=== PATIENT | female | born 1965 | race Caucasian/White ===

== ENCOUNTER 2018-01-26 11:39 | Emergency (ER) | payer OTHER, MEDICAID, SELFPAY ==
[2018-01-26 11:54] VITALS: BP 166/92; PULSE 62; RESP 13; TEMP 36.6; O2SAT 97
[2018-01-26 12:05] VITALS: BP 146/92; PULSE 65; RESP 18; O2SAT 99
--- NOTE | 2018-01-26 12:12 | DI.RAD.S_ITS ---
PROCEDURE: XR CHEST 1V INDICATIONS: Elevated blood pressure and headache. Chest pressure. TECHNIQUE: One view of the chest was acquired. COMPARISON: [facility], , CHEST 2 VIEW, 11/04/2012, 23:28. FINDINGS: Surgical changes and devices: None. Lungs and pleura: No pleural effusions or pneumothorax. A faint nodular/linear opacity projects over the right upper lobe at the overlap of the right third and fifth ribs, not present on comparison exam. Mediastinum: Mediastinal contours appear normal. Heart size is normal. Bones and chest wall: No suspicious bony lesions. Overlying soft tissues appear unremarkable. IMPRESSION: Faint nodular/linear opacity projects over the right upper lobe at the overlap of the right third and fifth ribs. This is not seen on comparison exam. This is likely artifactual but consider followup repeat chest radiograph to exclude a new pulmonary abnormality. Otherwise, no acute cardiopulmonary disease detected. Dictated by: Ken Najera M.D. on 01/26/2018 at 12:43 Approved by: Ken Najera M.D. on 01/26/2018 at 12:46
--- NOTE | 2018-01-26 12:20 | ED_ITS ---
HPI - Headache <PHUONG Chandler - Last Filed: 01/26/18 21:54> General Chief Complaint: Headache Stated Complaint: High blood pressure, headache Time Seen by Provider: 01/26/18 11:44 History of Present Illness HPI Narrative: 52-year-old female with history of migraine headaches and also essential hypertension here for complaint of having elevated blood pressure today and also having migraine headache. She states she has a headache most days she states that this is a typical migraine headache for her. She has photophobia. Slight nausea. She has not been on hypertension medicine as she was taken off as she states that she had hypo kalemia. She was a patient of Dr. Woods in the past however was discharged. She has not had any hypertension medications since this timeframe. She also states that she has had increased frustration with the people around her at work and at home. She denies any fevers or chills. She denies any other stressors. No relievers of her headache. Her blood pressure reduced after relaxing in the emergency room for a small period time. MD Complaint: headache Related Data Home Medications Medication Instructions Recorded Confirmed [id number] 250 1 tab PO Q4-6H PRN 01/13/18 01/26/18 mg-250 mg-65 mg tablet multivitamin tablet 1 tab PO DAILY 01/13/18 01/26/18 omega-3 fatty acids 1,000 mg 1,000 mg PO DAILY 01/13/18 01/26/18 capsule hydroxyzine HCl 25 - 50 mg PO HS 01/26/18 01/26/18 venlafaxine 3 cap PO DAILY 01/26/18 01/26/18 Previous Rx's Medication Instructions Recorded cholecalciferol (vitamin D3) 2,000 2,000 unit PO DAILY 90 Days #90 cap 01/13/18 unit capsule propranolol 20 mg tablet 20 mg PO BIDP PRN 30 Days #60 tab 01/13/18 Allergies Allergy/AdvReac Type Severity Reaction Status Date / Time lamotrigine [LAMOTRIGINE] Allergy Severe (LAMICTAL) Unverified 01/13/18 14:21 REALLY BAD NIGHTMARES tramadol [TRAMADOL] Allergy Severe SOB AND Unverified 01/13/18 14:21 RASH clonidine [CLONIDINE] Allergy Intermediate PATIENT Unverified 01/13/18 14:21 CAN'T REMEMBER...IT JUST WASN'T GOOD FOR ME Sulfa (Sulfonamide Allergy Intermediate RASH Unverified 01/13/18 14:21 Antibiotics) [SULFA (SULFONAMIDE ANTIBIOTICS)] bupropion [BUPROPION] AdvReac Unknown SOB and Unverified 01/13/18 14:21 panic reported by patient Review of Systems <PHUONG Chandler - Last Filed: 01/26/18 21:54> Constitutional Denies fatigue and Reports headache(s) Eyes Denies change in vision, Denies eye discharge, Denies irritation and Denies loss of vision ENT Ears, Nose, Mouth, and Throat: Reports headache(s) Cardiovascular Denies dyspnea and Denies dyspnea on exertion Comments: Elevated blood pressure Respiratory Denies cough, Denies dyspnea, Denies dyspnea on exertion and Denies wheezing Gastrointestinal Gastrointestinal: Denies abdominal pain, Denies change in bowel habits, Denies diarrhea, Denies nausea and Denies vomiting Genitourinary Denies hematuria, Denies flank pain, Denies urinary incontinence and Denies urinary urgency Musculoskeletal Denies back pain, Denies muscle weakness, Denies numbness and Denies tingling Integumentary/Breasts Denies pruritus, Denies erythema, Denies rash and Denies wounds Neurologic Denies confusion, Reports headache(s), Denies loss of vision, Denies numbness and Denies tingling Psychiatric Denies anxiety, Denies confusion, Denies depression, Denies homicidal ideation and Denies suicidal ideation Endocrine Denies fatigue and Denies flushing Hematologic/Lymphatic Denies easy bruising Allergic/Immunologic Denies wheezing Exam <PHUONG Chandler - Last Filed: 01/26/18 21:54> Initial Vital Signs Initial Vital Signs: Vital Signs Temperature 97.8 F 01/26/18 11:54 Pulse Rate 62 01/26/18 11:54 Respiratory Rate 13 01/26/18 11:54 Blood Pressure 166/92 H 01/26/18 11:54 Pulse Oximetry 97 01/26/18 11:54 Const General: cooperative and well developed Nutritional Appearance: well nourished Orientation: alert, awake, oriented x3 and not confused HENMT Mouth: oral mucosae normal and moist mucous membranes Eyes Conjunctivae: conjunctivae normal Sclera: sclerae normal Pupils: PERRL EOM: EOM intact bilaterally Resp Effort & Inspection: normal respiratory effort, able to speak in complete sentences, no respiratory distress and no use of accessory muscles Auscultation: clear to auscultation bilaterally, no rales, no rhonchi and no wheezes Cardio Rate: regular rate Rhythm: regular rhythm Heart Sounds: no click, no gallops, no murmurs and no rubs Pulses: normal peripheral pulses Skin General: no rashes or lesions noted, No jaundice and No petechiae Neuro General: alert, oriented x3, gait normal and no focal motor deficits Speech: speech normal Extrem General: full ROM, no clubbing, cyanosis or edema, no pedal edema and no calf tenderness <Silas Quiroz DO - Last Filed: 01/27/18 08:31> Initial Vital Signs Initial Vital Signs: Vital Signs Temperature 97.8 F 01/26/18 11:54 Pulse Rate 62 01/26/18 11:54 Respiratory Rate 13 01/26/18 11:54 Blood Pressure 166/92 H 01/26/18 11:54 Pulse Oximetry 97 01/26/18 11:54 Course <PHUONG Chandler - Last Filed: 01/26/18 21:54> Orders Ordered: Discontinued Medications Diphenhydramine HCl (Benadryl) 25 mg IV NOW ONE Stop: 01/26/18 12:13 Last Admin: 01/26/18 13:31 Dose: Sodium Chloride (Normal Saline 0.9%) 1,000 mls @ 1,000 mls/hr IV BOLUS ONE Stop: 01/26/18 13:11 Last Infusion: 01/26/18 14:06 Dose: 1,000 mls/hr Admin: 01/26/18 13:30 Dose: 1,000 mls/hr Ketorolac Tromethamine (Toradol) 30 mg IV NOW ONE Stop: 01/26/18 12:13 Last Admin: 01/26/18 13:30 Dose: 30 mg Prochlorperazine (Compazine) 10 mg IV NOW ONE Stop: 01/26/18 12:17 Last Admin: 01/26/18 13:31 Dose: Vital Signs - 8 hr 01/26/18 14:05 Pulse Rate 60 Respiratory Rate 16 Blood Pressure 170/96 H Pulse Oximetry 100 <Silas Quiroz DO - Last Filed: 01/27/18 08:31> Orders Ordered: Discontinued Medications Diphenhydramine HCl (Benadryl) 25 mg IV NOW ONE Stop: 01/26/18 12:13 Last Admin: 01/26/18 13:31 Dose: Sodium Chloride (Normal Saline 0.9%) 1,000 mls @ 1,000 mls/hr IV BOLUS ONE Stop: 01/26/18 13:11 Last Infusion: 01/26/18 14:06 Dose: 1,000 mls/hr Admin: 01/26/18 13:30 Dose: 1,000 mls/hr Ketorolac Tromethamine (Toradol) 30 mg IV NOW ONE Stop: 01/26/18 12:13 Last Admin: 01/26/18 13:30 Dose: 30 mg Prochlorperazine (Compazine) 10 mg IV NOW ONE Stop: 01/26/18 12:17 Last Admin: 01/26/18 13:31 Dose: Vital Signs - 8 hr 01/26/18 14:05 Pulse Rate 60 Respiratory Rate 16 Blood Pressure 170/96 H Pulse Oximetry 100 MDM - Headache <PHUONG Chandler - Last Filed: 01/26/18 21:54> Lab Data Result diagrams: 01/26/18 12:30 01/26/18 12:30 Lab Results 01/26/18 01/26/18 Range/Units 12:30 12:30 WBC 8.4 (4.5-11.0) X10^3/uL RBC 4.69 (4.0-5.2) X10^6/uL Hgb 13.9 (12.0-16.0) g/dL Hct 40.5 (36-46) % MCV 86.2 (80-100) fL MCH 29.6 (26-34) PG MCHC 34.3 (30-36) % RDW 13.4 (11.6-14.8) % Plt Count 352 (150-400) X10^3/uL Neut % (Auto) 55.4 (50-75) % Lymph % (Auto) 34.1 (25-40) % [place] % (Auto) 6.7 (3-14) % Eos % (Auto) 3.3 (2-4) % Baso % (Auto) 0.5 (0-2) % Neut # (Auto) 4600 (2945-4259) /uL Sodium 141 (137-145) mmol/L Potassium 3.7 (3.4-5.1) mmol/L Chloride 104 (98-107) mmol/L Carbon Dioxide 30 (22-32) mmol/L BUN 17 (7-17) mg/dL Creatinine 0.70 (0.52-1.04) mg/dL Estimated GFR > 60.0 (>60) mL/min BUN/Creatinine Ratio 24.3 H (6-22) Glucose 99 (70-100) mg/dL Calcium 9.6 (8.4-10.2) mg/dL Total Bilirubin 0.7 (0.2-1.3) mg/dL AST 25 (14-36) IU/L ALT 27 (9-52) IU/L Alkaline Phosphatase 85 (38-126) U/L Total Creatine Kinase 163 H (30-135) U/L CK-MB (CK-2) 2.85 H (<2.37) ng/mL CK-MB (CK-2) Rel Index 1.7 (1.5-5.0) % Troponin I < 0.012 (0.01-0.034) ng/mL Total Protein 7.3 (6.3-8.2) g/dL Albumin 4.3 (3.5-5.0) g/dL Globulin 3.0 (1.7-4.1) g/dL Albumin/Globulin Ratio 1.4 (1.0-2.8) Imaging Data Chest x-ray: Radiologist's impression: PROCEDURE: XR CHEST 1V INDICATIONS: Elevated blood pressure and headache. Chest pressure. TECHNIQUE: One view of the chest was acquired. COMPARISON: [facility], , CHEST 2 VIEW, 11/04/2012, 23:28. FINDINGS: Surgical changes and devices: None. Lungs and pleura: No pleural effusions or pneumothorax. A faint nodular/linear opacity projects over the right upper lobe at the overlap of the right third and fifth ribs, not present on comparison exam. Mediastinum: Mediastinal contours appear normal. Heart size is normal. Bones and chest wall: No suspicious bony lesions. Overlying soft tissues appear unremarkable. IMPRESSION: Faint nodular/linear opacity projects over the right upper lobe at the overlap of the right third and fifth ribs. This is not seen on comparison exam. This is likely artifactual but consider followup repeat chest radiograph to exclude a new pulmonary abnormality. Otherwise, no acute cardiopulmonary disease detected. Dictated by: Ken Najera M.D. on 01/26/2018 at 12:43 Approved by: Ken Najera M.D. on 01/26/2018 at 12:46 CT scan - head: Radiologist's impression: PROCEDURE: CT HEAD/BRAIN WO CON INDICATIONS: HEADACHE TECHNIQUE: Noncontrast 4.5 mm thick angled axial sections acquired from the foramen magnum to the vertex, with coronal and sagittal reformats. For radiation dose reduction, the following was used: automated exposure control, adjustment of mA and/or kV according to patient size. COMPARISON: None. FINDINGS: Image quality: Excellent. CSF spaces: Basal cisterns are patent. No extra-axial fluid collections. Ventricles are normal in size and shape. Brain: No intracranial hemorrhage, mass, or mass effect. Dobbins-white matter interface is preserved. Skull and face: Calvarium and visualized facial bones are intact, without suspicious lesions. Sinuses: Visualized sinuses and mastoids are clear. IMPRESSION: 1. No acute intracranial abnormality. Dictated by: Velasquez Gallagher M.D. on 01/26/2018 at 13:15 Approved by: Velasquez Gallagher M.D. on 01/26/2018 at 13:16 ECG Data Interpretation: EKG shows sinus bradycardia with no ST elevation or depression. No ectopy. Ventricular rate of 56. Pr interval 165. QRS duration of 88. QTC of 453. MDM Narrative Medical decision making narrative: CT the head was obtained was negative for any acute findings. CBC was obtained was unremarkable. Chem panel was negative for any acute findings. Cardiac enzymes show elevated CK-MB however relative index was normal. Troponin was negative. EKG shows sinus rhythm no ST elevation or depression. No signs of organ damage on laboratory results. Her headache was relieved with fluids and Toradol. She states she felt better after relaxing in the emergency room. Her blood pressure normalized in the emergency room after relaxing. She is to follow up with primary care provider here in the next few days with discussion of medications for her essential hypertension. [id number] Tylenol Motrin as needed for discomfort or headache. For any worsening symptoms return to the emergency room. <Silas Quiroz DO - Last Filed: 01/27/18 08:31> Lab Data Lab Results 01/26/18 01/26/18 Range/Units 12:30 12:30 WBC 8.4 (4.5-11.0) X10^3/uL RBC 4.69 (4.0-5.2) X10^6/uL Hgb 13.9 (12.0-16.0) g/dL Hct 40.5 (36-46) % MCV 86.2 (80-100) fL MCH 29.6 (26-34) PG MCHC 34.3 (30-36) % RDW 13.4 (11.6-14.8) % Plt Count 352 (150-400) X10^3/uL Neut % (Auto) 55.4 (50-75) % Lymph % (Auto) 34.1 (25-40) % [place] % (Auto) 6.7 (3-14) % Eos % (Auto) 3.3 (2-4) % Baso % (Auto) 0.5 (0-2) % Neut # (Auto) 4600 (3359-1832) /uL Sodium 141 (137-145) mmol/L Potassium 3.7 (3.4-5.1) mmol/L Chloride 104 (98-107) mmol/L Carbon Dioxide 30 (22-32) mmol/L BUN 17 (7-17) mg/dL Creatinine 0.70 (0.52-1.04) mg/dL Estimated GFR > 60.0 (>60) mL/min BUN/Creatinine Ratio 24.3 H (6-22) Glucose 99 (70-100) mg/dL Calcium 9.6 (8.4-10.2) mg/dL Total Bilirubin 0.7 (0.2-1.3) mg/dL AST 25 (14-36) IU/L ALT 27 (9-52) IU/L Alkaline Phosphatase 85 (38-126) U/L Total Creatine Kinase 163 H (30-135) U/L CK-MB (CK-2) 2.85 H (<2.37) ng/mL CK-MB (CK-2) Rel Index 1.7 (1.5-5.0) % Troponin I < 0.012 (0.01-0.034) ng/mL Total Protein 7.3 (6.3-8.2) g/dL Albumin 4.3 (3.5-5.0) g/dL Globulin 3.0 (1.7-4.1) g/dL Albumin/Globulin Ratio 1.4 (1.0-2.8) Discharge Plan Departure Patient Disposition: Home, Self-Care Clinical Impression: Migraine without status migrainosus, not intractable Discharge Date/Time: 01/26/18 14:09 Interventions: ED Discharge Assessment Last Done: 01/26/18 14:05 Instructions: DI for Migraine Activity Restrictions/Additional Instructions: Sinus symptoms presents as a migraine headache. Blood pressure was initially elevated however after relaxing year blood pressure lower. Follow up with her primary care provider in the next few days for re-evaluation and discussion of medication treatment for hypertension. Recommend repeat a chest x-ray later as there was some possible artifact that was seen on the chest x-ray ensure that there are no complications. Head CT was obtained and was negative for any acute findings. Laboratory results were unremarkable. For any worsening symptoms return to the emergency room. Prescriptions: No Action omega-3 fatty acids [Fish Oil Concentrate] 1,000 mg capsule 1,000 mg PO DAILY RF: 0 [id number]-aqqpypahsepov-dgllwpek [Excedrin Migraine] 250-250-65 mg tablet 1 tab PO Q4-6H PRN (Reason: Migraine Headache) RF: 0 multivitamin tablet 1 tab PO DAILY RF: 0 propranolol 20 mg tablet 20 mg PO BIDP PRN (Reason: anxiety) 30 Days Qty: 60 RF: 2 cholecalciferol (vitamin D3) 2,000 unit capsule 2,000 unit PO DAILY 90 Days Qty: 90 RF: 3 venlafaxine 150 mg capsule,extended release 24hr 3 cap PO DAILY RF: 0 hydroxyzine HCl 50 MG tablet 25 - 50 mg PO HS RF: 0 Referrals: [facility] [Provider Group] Stand Alone Forms: Work/School Restrictions <Silas Quiroz DO - Last Filed: 01/27/18 08:31> Cosign ED Attending Ishan Attestation: I was immediately available in the department for consultation. Documentation has been reviewed. I agree with assessment and plan.
--- NOTE | 2018-01-26 12:30 | DI.CT.S_ITS ---
PROCEDURE: CT HEAD/BRAIN WO CON INDICATIONS: HEADACHE TECHNIQUE: Noncontrast 4.5 mm thick angled axial sections acquired from the foramen magnum to the vertex, with coronal and sagittal reformats. For radiation dose reduction, the following was used: automated exposure control, adjustment of mA and/or kV according to patient size. COMPARISON: None. FINDINGS: Image quality: Excellent. CSF spaces: Basal cisterns are patent. No extra-axial fluid collections. Ventricles are normal in size and shape. Brain: No intracranial hemorrhage, mass, or mass effect. Dobbins-white matter interface is preserved. Skull and face: Calvarium and visualized facial bones are intact, without suspicious lesions. Sinuses: Visualized sinuses and mastoids are clear. IMPRESSION: 1. No acute intracranial abnormality. Dictated by: Velasquez Gallagher M.D. on 01/26/2018 at 13:15 Approved by: Velasquez Gallagher M.D. on 01/26/2018 at 13:16
[2018-01-26 12:43] VITALS: BP 168/88; PULSE 57; RESP 18; O2SAT 100
[2018-01-26 12:50] LABS: Add Manual Diff / Slide Review NO; Basophils Percent Auto 0.5 % (0-2); Eosinophils Percent Auto 3.3 % (2-4); Hematocrit 40.5 % (36-46); Hemoglobin 13.9 g/dL (12.0-16.0); Lymphocytes Percent Auto 34.1 % (25-40); Mean Corpuscular HGB Conc 34.3 % (30-36); Mean Corpuscular Hemoglobin 29.6 PG (26-34); Mean Corpuscular Volume 86.2 fL (80-100); Monocytes Percent Auto 6.7 % (3-14); Neutrophils Absolute Auto 4600 /uL (3000-5900); Neutrophils Percent Auto 55.4 % (50-75); Platelet Count 352 X10^3/uL (150-400); Red Blood Cell Count 4.69 X10^6/uL (4.0-5.2); Red Cell Distribution Width 13.4 % (11.6-14.8); White Blood Cell Count 8.4 X10^3/uL (4.5-11.0)
[2018-01-26 12:52] LABS: Alanine Aminotransferase 27 IU/L (9-52); Albumin 4.3 g/dL (3.5-5.0); Albumin Globulin Ratio 1.4 (1.0-2.8); Alkaline Phosphatase 85 U/L (38-126); Aspartate Aminotransferase 25 IU/L (14-36); BUN Creatinine Ratio 24.3 (6-22); Bilirubin Total 0.7 mg/dL (0.2-1.3); Blood Urea Nitrogen 17 mg/dL (7-17); Calcium 9.6 mg/dL (8.4-10.2); Carbon Dioxide 30 mmol/L (22-32); Chloride 104 mmol/L (98-107); Creatine Kinase 163 U/L (30-135); Estimated Glomerular Filt Rate > 60.0 mL/min (>60); Glucose 99 mg/dL (70-100); HEMOLYSIS < 15 (0-50); Potassium 3.7 mmol/L (3.4-5.1); Sodium 141 mmol/L (137-145); Total Protein 7.3 g/dL (6.3-8.2)
[2018-01-26 13:04] LABS: Troponin I < 0.012 ng/mL (0.01-0.034)
[2018-01-26 13:08] LABS: CKMB % Relative Index 1.7 % (1.5-5.0); Creatine Kinase MB 2.85 ng/mL (<2.37)
[2018-01-26] MEDS: SODIUM CHLORIDE 0.9% 1,000 ML 1000 ML IV (13:30)
[2018-01-26] MEDS: KETOROLAC 60 MG/2 ML VIAL 30 MG IV (13:30)
[2018-01-26 13:35] VITALS: BP 160/93; PULSE 62; RESP 17; O2SAT 98
[2018-01-26 14:05] VITALS: BP 170/96; PULSE 60; RESP 16; O2SAT 100
== END 2018-01-26 14:09 | disposition home or self-care (01) ==
PROVIDERS: Emergency Provider Nurse Practitioner Family
DX: G43.909 Migraine, unspecified, not intractable, without status migrainosus (principal)
CPT/HCPCS: 70450; 71045; 80053; 82550; 82553; 84484; 85025; 93005; 96361; 96374; 99283; 99285; J1885

== ENCOUNTER 2018-03-11 12:34 | Emergency (ER) | payer OTHER, MEDICAID, SELFPAY ==
--- NOTE | 2018-03-11 | DI.RAD.S_ITS ---
PROCEDURE: XR WRIST LT MIN 3V INDICATIONS: PAIN TECHNIQUE: 4 views of the wrist were acquired. COMPARISON: [facility], CR, XR FOREARM LT 2V, 03/11/2018, 12:40. FINDINGS: Bones: There is a fracture involving the distal radial metaphysis with impaction and dorsal angulation. Equivocal intra-articular involvement. No suspicious bony lesions. Scaphoid view: Scaphoid appears intact. Soft tissues: No suspicious soft tissue calcifications. IMPRESSION: Distal radial metaphyseal fracture with impaction and dorsal angulation. Dictated by: Magdalene Barrientos M.D. on 03/11/2018 at 13:44 Approved by: Magdalene Barrientos M.D. on 03/11/2018 at 13:46
--- NOTE | 2018-03-11 12:40 | ED.UPPEXIN ---
HPI - Extremity Injury (Upper) <PHUONG Chandler - Last Filed: 03/11/18 20:46> General Chief Complaint: Extremity Injury, Upper Stated Complaint: FELL,HIT HEAD, LEFT WRIST PAIN Time Seen by Provider: 03/11/18 12:40 Source: patient Mode of arrival: ambulatory Limitations: no limitations History of Present Illness HPI narrative: 52-year-old female with history of hypertension and everyday smoker here for complaint of pain into her left wrist and forearm area after ground level fall. She also reports that she has had pain into her right ribcage. [place] on [place] piece of wood. She tried to brace her fall with her left hand. She also states she rolled landing on her right buttocks and right ribcage. She reports pain into her right rib cage area. She does state that she did hit her head she denies any loss of consciousness. She did have 1 episode of vomiting shortly after the fall however denies any other vomiting. She denies any headache or pain to her head at this time. Pain is limited to the right ribcage area and to the left forearm/wrist. She denies any other injuries or concerns. She is ambulatory to the emergency room. Related Data Home Medications Medication Instructions Recorded Confirmed cnnmepa-tzdcxiukxsprm-dzfxnodw 250 1 tab PO Q4-6H PRN 01/13/18 01/26/18 mg-250 mg-65 mg tablet multivitamin tablet 1 tab PO DAILY 01/13/18 01/26/18 omega-3 fatty acids 1,000 mg 1,000 mg PO DAILY 01/13/18 01/26/18 capsule hydroxyzine HCl 25 - 50 mg PO HS 01/26/18 03/11/18 venlafaxine 3 cap PO DAILY 01/26/18 03/11/18 Previous Rx's Medication Instructions Recorded cholecalciferol (vitamin D3) 2,000 2,000 unit PO DAILY 90 Days #90 cap 01/13/18 unit capsule propranolol 20 mg tablet 20 mg PO BIDP PRN 30 Days #60 tab 01/13/18 hydrocodone-acetaminophen 1 tab PO Q4-6H PRN #10 tab 03/11/18 Allergies Allergy/AdvReac Type Severity Reaction Status Date / Time lamotrigine [LAMOTRIGINE] Allergy Severe (LAMICTAL) Verified 03/11/18 12:47 REALLY BAD NIGHTMARES tramadol [TRAMADOL] Allergy Severe SOB AND Verified 03/11/18 12:47 RASH clonidine [CLONIDINE] Allergy Intermediate PATIENT Verified 03/11/18 12:47 CAN'T REMEMBER...IT JUST WASN'T GOOD FOR ME Sulfa (Sulfonamide Allergy Intermediate RASH Verified 03/11/18 12:47 Antibiotics) [SULFA (SULFONAMIDE ANTIBIOTICS)] bupropion [BUPROPION] AdvReac Unknown SOB and Verified 03/11/18 12:47 panic reported by patient Review of Systems <PHUONG Chandler - Last Filed: 03/11/18 20:46> Constitutional Denies chills, Denies fever(s), Denies lethargy and Denies weakness Eyes Denies change in vision, Denies eye discharge, Denies irritation and Denies loss of vision ENT Ears, Nose, Mouth, and Throat: Denies change in voice, Denies neck pain and Denies sore throat Cardiovascular Denies chest pain, Denies irregular heart rhythm, Denies lightheadedness, Denies palpitations, Denies dyspnea, Denies dyspnea on exertion and Denies orthopnea Respiratory Denies cough, Denies dyspnea, Denies dyspnea on exertion and Denies wheezing Gastrointestinal Gastrointestinal: Denies abdominal pain, Denies change in bowel habits, Denies diarrhea, Denies nausea and Denies vomiting Genitourinary Denies hematuria, Denies flank pain, Denies urinary incontinence and Denies urinary urgency Musculoskeletal Denies neck pain Comments: Pain and swelling into the left wrist/forearm after ground level fall with also having pain to the right ribcage area Integumentary/Breasts Denies pruritus, Denies erythema, Denies rash and Denies wounds Neurologic Denies confusion, Denies loss of vision and Denies weakness Psychiatric Denies anxiety, Denies confusion, Denies depression, Denies homicidal ideation and Denies suicidal ideation Endocrine Denies palpitations Allergic/Immunologic Denies wheezing Exam <PHUONG Chandler - Last Filed: 03/11/18 20:46> Initial Vital Signs Initial Vital Signs: Vital Signs Temperature 97.5 F L 03/11/18 12:42 Pulse Rate 85 03/11/18 12:42 Respiratory Rate 18 03/11/18 12:42 Blood Pressure 153/108 H 03/11/18 12:42 Pulse Oximetry 98 03/11/18 12:42 Const General: cooperative and well developed Nutritional Appearance: well nourished Orientation: alert, awake, oriented x3 and not confused [facility] Head: normal to inspection, normocephalic, No Maria's sign, No contusion, No hematoma, No laceration, No palpable skull fracture, No raccoon eyes, No scalp lesion and No scalp tenderness Face and sinus: normal facial exam and face symmetric Mouth: oral mucosae normal, oropharynx normal and moist mucous membranes Eyes Conjunctivae: conjunctivae normal Sclera: sclerae normal Pupils: PERRL EOM: EOM intact bilaterally Neck Neck: normal visual inspection, trachea midline, No lymphadenopathy, No midline deformity and No JVD Lymphatic: No lymphedema Chest Chest: normal inspection of the chest Other: Slight tenderness to the right lateral ribcage. No signs of trauma Resp Effort & Inspection: normal respiratory effort, able to speak in complete sentences, no respiratory distress and no use of accessory muscles Auscultation: clear to auscultation bilaterally, no rales, no rhonchi and no wheezes Cardio Rate: regular rate Rhythm: regular rhythm Heart Sounds: no click, no gallops, no murmurs and no rubs Pulses: normal peripheral pulses Skin General: no rashes or lesions noted, No jaundice and No petechiae Neuro General: alert, oriented x3, gait normal and no focal motor deficits Speech: speech normal Extrem Other: Swelling into the ulnar aspect of the left wrist. Distal sensation is intact. Distal pulses are intact. Distal range of motion is intact. No open lesions. No snuffbox tenderness <Elizabeth Paul DO - Last Filed: 03/16/18 07:27> Initial Vital Signs Initial Vital Signs: Vital Signs Temperature 97.5 F L 03/11/18 12:42 Pulse Rate 85 03/11/18 12:42 Respiratory Rate 18 03/11/18 12:42 Blood Pressure 153/108 H 03/11/18 12:42 Pulse Oximetry 98 03/11/18 12:42 Procedures <PHUONG Chandler - Last Filed: 03/11/18 20:46> Orthopedic Splinting/Casting Injury #1: Side: left Upper Extremity Injury Location: wrist Additional Comments: Sugar tong splint applied to left forearm by nursing staff. Applied appropriately. Distal CMS is intact. Course <PHUONG Chandler - Last Filed: 03/11/18 20:46> Orders Ordered: Discontinued Medications Ibuprofen (Advil) 400 mg PO NOW ONE Stop: 03/11/18 13:02 Last Admin: 03/11/18 13:14 Dose: 400 mg Vital Signs - 8 hr 03/11/18 14:50 Pulse Rate 74 Respiratory Rate 15 Blood Pressure 134/69 Pulse Oximetry 100 <Elizabeth Paul DO - Last Filed: 03/16/18 07:27> Orders Ordered: Discontinued Medications Ibuprofen (Advil) 400 mg PO NOW ONE Stop: 03/11/18 13:02 Last Admin: 03/11/18 13:14 Dose: 400 mg Vital Signs - 8 hr 03/11/18 14:50 Pulse Rate 74 Respiratory Rate 15 Blood Pressure 134/69 Pulse Oximetry 100 MDM - Extremity Injury (Upper) <PHUONG Chandler - Last Filed: 03/11/18 20:46> Imaging Data r wrist: Radiologist's impression: [address] [address] XRay Report Signed Patient: Makayla Mohan MR#: [id number] : 1965 Acct:[id number] Age/Sex: 52 / F Date of Service: 03/11/18 Loc: ED Accession Number: [id number] Procedure: XR wrist LT min 3V Ordering Provider: Tripp Munoz PROCEDURE: XR WRIST LT MIN 3V INDICATIONS: PAIN TECHNIQUE: 4 views of the wrist were acquired. COMPARISON: [facility], [facility], XR FOREARM LT 2V, 03/11/2018, 12:40. FINDINGS: Bones: There is a fracture involving the distal radial metaphysis with impaction and dorsal angulation. Equivocal intra-articular involvement. No suspicious bony lesions. Scaphoid view: Scaphoid appears intact. Soft tissues: No suspicious soft tissue calcifications. IMPRESSION: Distal radial metaphyseal fracture with impaction and dorsal angulation. Dictated by: Magdalene Barrientos M.D. on 03/11/2018 at 13:44 Approved by: Magdalene Barrientos M.D. on 03/11/2018 at 13:46 rib: Radiologist's impression: PROCEDURE: XR RIBS RT MIN 3V W CXR 1V INDICATIONS: Pain into right lateral ribcage status post ground level fal TECHNIQUE: 2 views of the right ribs were acquired, along with a single view chest. COMPARISON: None. FINDINGS: Surgical changes and devices: None. Bones and chest wall: No definitive acute fracture. There is a nonacute fracture involving the lateral aspect of the right third rib. No suspicious bony lesions. Overlying soft tissues appear unremarkable. Lungs and pleura: No pleural effusions or pneumothorax. Lungs appear clear. Mediastinum: Mediastinal contours appear normal. Heart size is normal. IMPRESSION: No definitive acute right rib fracture. A nonacute right third rib fracture is noted. Dictated by: Magdalene Barrientos M.D. on 03/11/2018 at 13:41 Approved by: Magdalene Barrientos M.D. on 03/11/2018 at 13:44 R forearm: Radiologist's impression: PROCEDURE: XR FOREARM RT 2V INDICATIONS: Pain to ulnar aspect of forearm status post ground level fal TECHNIQUE: 2 views of the forearm were acquired. COMPARISON: [facility], CR, XR WRIST LT MIN 3V, 03/11/2018, 12:40. FINDINGS: Bones: There is a comminuted fracture of the distal radial metaphysis with impaction and angulation. No suspicious bony lesions. Soft tissues: No suspicious soft tissue calcifications or masses. IMPRESSION: Distal radial metaphyseal fracture. Dictated by: Magdalene Barrientos M.D. on 03/11/2018 at 13:39 Approved by: Magdalene Barrientos M.D. on 03/11/2018 at 13:41 MDM Narrative Medical decision making narrative: X-ray of the right ribcage was obtained was negative for any acute findings. X-rays of the left forearm and wrist shows a distal radial impacted fracture. She is placed in a sugar-tong splint for comfort and support along with a sling. [id number] Tylenol or Motrin as needed for discomfort. Small amount of [place] is prescribed for breakthrough pain. She is referred to Orthopedics for further evaluation. Patient call the office tomorrow to schedule follow-up appointment in the next few days. For any worsening symptoms return to the emergency room. Patient had no further episodes of vomiting while in the emergency room and no headache no head discomfort. Will hold off on head CT at this time. Follow up with primary care provider. Head injury instructions provided with warning signs to return emergency room. Discharge Plan Departure Patient Disposition: Home Clinical Impression: Closed left radial fracture Discharge Date/Time: 03/11/18 14:50 Interventions: ED Discharge Assessment Last Done: 03/11/18 14:50 Instructions: DI for Forearm Fracture, DI for Closed Head Injury Activity Restrictions/Additional Instructions: X-ray of the left wrist shows a distal radial fracture. You have been placed in a splint for comfort and support use as directed along with sling. Use ctbf-hzs-beyhqol ibuprofen or Tylenol as needed for discomfort. Small amount of [place] is prescribed for breakthrough pain use as directed no driving while on the [place]. Ice and elevation help with any swelling. You referred Orthopedics for further evaluation and treatment call the number to schedule follow-up appointment. Head injury instructions are provided with warning signs to return to the emergency room. For any worsening symptoms return to the emergency room. X-ray of the right ribcage was obtained was negative for any acute findings. Prescriptions: New hydrocodone-acetaminophen 5-325 mg tablet 1 tab PO Q4-6H PRN (Reason: pain) Qty: 10 RF: 0 No Action omega-3 fatty acids [Fish Oil Concentrate] 1,000 mg capsule 1,000 mg PO DAILY RF: 0 reioimg-wkydasybgkjsm-aiwnvumy [Excedrin Migraine] 250-250-65 mg tablet 1 tab PO Q4-6H PRN (Reason: Migraine Headache) RF: 0 multivitamin tablet 1 tab PO DAILY RF: 0 propranolol 20 mg tablet 20 mg PO BIDP PRN (Reason: anxiety) 30 Days Qty: 60 RF: 2 cholecalciferol (vitamin D3) 2,000 unit capsule 2,000 unit PO DAILY 90 Days Qty: 90 RF: 3 venlafaxine 150 mg capsule,extended release 24hr 3 cap PO DAILY RF: 0 hydroxyzine HCl 50 MG tablet 25 - 50 mg PO HS RF: 0 Referrals: Velasquez Cortez MD [Physician] - <Elizabeth Paul DO - Last Filed: 03/16/18 07:27> Cosign ED Attending Cosignature Attestation: I was immediately available in the department for consultation. Documentation has been reviewed. I agree with assessment and plan.
[2018-03-11 12:42] VITALS: BP 153/108; PULSE 85; RESP 18; TEMP 36.4; O2SAT 98; BMI 34.0
--- NOTE | 2018-03-11 13:01 | DI.RAD.S_ITS ---
PROCEDURE: XR FOREARM RT 2V INDICATIONS: Pain to ulnar aspect of forearm status post ground level fal TECHNIQUE: 2 views of the forearm were acquired. COMPARISON: [facility], CR, XR WRIST LT MIN 3V, 03/11/2018, 12:40. FINDINGS: Bones: There is a comminuted fracture of the distal radial metaphysis with impaction and angulation. No suspicious bony lesions. Soft tissues: No suspicious soft tissue calcifications or masses. IMPRESSION: Distal radial metaphyseal fracture. Dictated by: Magdalene Barrientos M.D. on 03/11/2018 at 13:39 Approved by: Magdalene Barrientos M.D. on 03/11/2018 at 13:41
--- NOTE | 2018-03-11 13:01 | DI.RAD.S_ITS ---
PROCEDURE: XR RIBS RT MIN 3V W CXR 1V INDICATIONS: Pain into right lateral ribcage status post ground level fal TECHNIQUE: 2 views of the right ribs were acquired, along with a single view chest. COMPARISON: None. FINDINGS: Surgical changes and devices: None. Bones and chest wall: No definitive acute fracture. There is a nonacute fracture involving the lateral aspect of the right third rib. No suspicious bony lesions. Overlying soft tissues appear unremarkable. Lungs and pleura: No pleural effusions or pneumothorax. Lungs appear clear. Mediastinum: Mediastinal contours appear normal. Heart size is normal. IMPRESSION: No definitive acute right rib fracture. A nonacute right third rib fracture is noted. Dictated by: Magdalene Barrientos M.D. on 03/11/2018 at 13:41 Approved by: Magdalene Barrientos M.D. on 03/11/2018 at 13:44
[2018-03-11] MEDS: IBUPROFEN 400 MG TABLET PO (13:14)
--- NOTE | 2018-03-11 14:07 | ED_ITS ---
HPI - Extremity Injury (Upper) <PHUONG Chandler - Last Filed: 03/11/18 20:46> General Chief Complaint: Extremity Injury, Upper Stated Complaint: FELL,HIT HEAD, LEFT WRIST PAIN Time Seen by Provider: 03/11/18 12:40 Source: patient Mode of arrival: ambulatory Limitations: no limitations History of Present Illness HPI narrative: 52-year-old female with history of hypertension and everyday smoker here for complaint of pain into her left wrist and forearm area after ground level fall. She also reports that she has had pain into her right ribcage. [place] she stumbled on a piece of wood. She tried to brace her fall with her left hand. She also states she rolled landing on her right buttocks and right ribcage. She reports pain into her right rib cage area. She does state that she did hit her head she denies any loss of consciousness. She did have 1 episode of vomiting shortly after the fall however denies any other vomiting. She denies any headache or pain to her head at this time. Pain is limited to the right ribcage area and to the left forearm/wrist. She denies any other injuries or concerns. She is ambulatory to the emergency room. Related Data Home Medications Medication Instructions Recorded Confirmed [id number]-[id number]-nwqnztuy 250 1 tab PO Q4-6H PRN 01/13/18 01/26/18 mg-250 mg-65 mg tablet multivitamin tablet 1 tab PO DAILY 01/13/18 01/26/18 omega-3 fatty acids 1,000 mg 1,000 mg PO DAILY 01/13/18 01/26/18 capsule hydroxyzine HCl 25 - 50 mg PO HS 01/26/18 03/11/18 venlafaxine 3 cap PO DAILY 01/26/18 03/11/18 Previous Rx's Medication Instructions Recorded cholecalciferol (vitamin D3) 2,000 2,000 unit PO DAILY 90 Days #90 cap 01/13/18 unit capsule propranolol 20 mg tablet 20 mg PO BIDP PRN 30 Days #60 tab 01/13/18 hydrocodone-acetaminophen 1 tab PO Q4-6H PRN #10 tab 03/11/18 Allergies Allergy/AdvReac Type Severity Reaction Status Date / Time lamotrigine [LAMOTRIGINE] Allergy Severe (LAMICTAL) Verified 03/11/18 12:47 REALLY BAD NIGHTMARES tramadol [TRAMADOL] Allergy Severe SOB AND Verified 03/11/18 12:47 RASH clonidine [CLONIDINE] Allergy Intermediate PATIENT Verified 03/11/18 12:47 CAN'T REMEMBER...IT JUST WASN'T GOOD FOR ME Sulfa (Sulfonamide Allergy Intermediate RASH Verified 03/11/18 12:47 Antibiotics) [SULFA (SULFONAMIDE ANTIBIOTICS)] bupropion [BUPROPION] AdvReac Unknown SOB and Verified 03/11/18 12:47 panic reported by patient Review of Systems <PHUONG Chandler - Last Filed: 03/11/18 20:46> Constitutional Denies chills, Denies fever(s), Denies lethargy and Denies weakness Eyes Denies change in vision, Denies eye discharge, Denies irritation and Denies loss of vision ENT Ears, Nose, Mouth, and Throat: Denies change in voice, Denies neck pain and Denies sore throat Cardiovascular Denies chest pain, Denies irregular heart rhythm, Denies lightheadedness, Denies palpitations, Denies dyspnea, Denies dyspnea on exertion and Denies orthopnea Respiratory Denies cough, Denies dyspnea, Denies dyspnea on exertion and Denies wheezing Gastrointestinal Gastrointestinal: Denies abdominal pain, Denies change in bowel habits, Denies diarrhea, Denies nausea and Denies vomiting Genitourinary Denies hematuria, Denies flank pain, Denies urinary incontinence and Denies urinary urgency Musculoskeletal Denies neck pain Comments: Pain and swelling into the left wrist/forearm after ground level fall with also having pain to the right ribcage area Integumentary/Breasts Denies pruritus, Denies erythema, Denies rash and Denies wounds Neurologic Denies confusion, Denies loss of vision and Denies weakness Psychiatric Denies anxiety, Denies confusion, Denies depression, Denies homicidal ideation and Denies suicidal ideation Endocrine Denies palpitations Allergic/Immunologic Denies wheezing Exam <PHUONG Chandler - Last Filed: 03/11/18 20:46> Initial Vital Signs Initial Vital Signs: Vital Signs Temperature 97.5 F L 03/11/18 12:42 Pulse Rate 85 03/11/18 12:42 Respiratory Rate 18 03/11/18 12:42 Blood Pressure 153/108 H 03/11/18 12:42 Pulse Oximetry 98 03/11/18 12:42 Const General: cooperative and well developed Nutritional Appearance: well nourished Orientation: alert, awake, oriented x3 and not confused [facility] Head: normal to inspection, normocephalic, No Maria's sign, No contusion, No hematoma, No laceration, No palpable skull fracture, No raccoon eyes, No scalp lesion and No scalp tenderness Face and sinus: normal facial exam and face symmetric Mouth: oral mucosae normal, oropharynx normal and moist mucous membranes Eyes Conjunctivae: conjunctivae normal Sclera: sclerae normal Pupils: PERRL EOM: EOM intact bilaterally Neck Neck: normal visual inspection, trachea midline, No lymphadenopathy, No midline deformity and No JVD Lymphatic: No lymphedema Chest Chest: normal inspection of the chest Other: Slight tenderness to the right lateral ribcage. No signs of trauma Resp Effort & Inspection: normal respiratory effort, able to speak in complete sentences, no respiratory distress and no use of accessory muscles Auscultation: clear to auscultation bilaterally, no rales, no rhonchi and no wheezes Cardio Rate: regular rate Rhythm: regular rhythm Heart Sounds: no click, no gallops, no murmurs and no rubs Pulses: normal peripheral pulses Skin General: no rashes or lesions noted, No jaundice and No petechiae Neuro General: alert, oriented x3, gait normal and no focal motor deficits Speech: speech normal Extrem Other: Swelling into the ulnar aspect of the left wrist. Distal sensation is intact. Distal pulses are intact. Distal range of motion is intact. No open lesions. No snuffbox tenderness <Elizabeth Paul DO - Last Filed: 03/16/18 07:27> Initial Vital Signs Initial Vital Signs: Vital Signs Temperature 97.5 F L 03/11/18 12:42 Pulse Rate 85 03/11/18 12:42 Respiratory Rate 18 03/11/18 12:42 Blood Pressure 153/108 H 03/11/18 12:42 Pulse Oximetry 98 03/11/18 12:42 Procedures <PHUONG Chandler - Last Filed: 03/11/18 20:46> Orthopedic Splinting/Casting Injury #1: Side: left Upper Extremity Injury Location: wrist Additional Comments: Sugar tong splint applied to left forearm by nursing staff. Applied appropriately. Distal CMS is intact. Course <PHUONG Chandler - Last Filed: 03/11/18 20:46> Orders Ordered: Discontinued Medications Ibuprofen (Advil) 400 mg PO NOW ONE Stop: 03/11/18 13:02 Last Admin: 03/11/18 13:14 Dose: 400 mg Vital Signs - 8 hr 03/11/18 14:50 Pulse Rate 74 Respiratory Rate 15 Blood Pressure 134/69 Pulse Oximetry 100 <Elizabeth Paul DO - Last Filed: 03/16/18 07:27> Orders Ordered: Discontinued Medications Ibuprofen (Advil) 400 mg PO NOW ONE Stop: 03/11/18 13:02 Last Admin: 03/11/18 13:14 Dose: 400 mg Vital Signs - 8 hr 03/11/18 14:50 Pulse Rate 74 Respiratory Rate 15 Blood Pressure 134/69 Pulse Oximetry 100 MDM - Extremity Injury (Upper) <PHUONG Chandler - Last Filed: 03/11/18 20:46> Imaging Data r wrist: Radiologist's impression: [address] [address] XRay Report Signed Patient: Makayla Mohan MR#: [id number] : 1965 Acct:[id number] Age/Sex: 52 / F Date of Service: 03/11/18 Loc: ED Accession Number: [id number] Procedure: XR wrist LT min 3V Ordering Provider: Tripp Munoz PROCEDURE: XR WRIST LT MIN 3V INDICATIONS: PAIN TECHNIQUE: 4 views of the wrist were acquired. COMPARISON: [facility], HEATHER, XR FOREARM LT 2V, 03/11/2018, 12:40. FINDINGS: Bones: There is a fracture involving the distal radial metaphysis with impaction and dorsal angulation. Equivocal intra-articular involvement. No suspicious bony lesions. Scaphoid view: Scaphoid appears intact. Soft tissues: No suspicious soft tissue calcifications. IMPRESSION: Distal radial metaphyseal fracture with impaction and dorsal angulation. Dictated by: Magdalene Barrientos M.D. on 03/11/2018 at 13:44 Approved by: Magdalene Barrientos M.D. on 03/11/2018 at 13:46 rib: Radiologist's impression: PROCEDURE: XR RIBS RT MIN 3V W CXR 1V INDICATIONS: Pain into right lateral ribcage status post ground level fal TECHNIQUE: 2 views of the right ribs were acquired, along with a single view chest. COMPARISON: None. FINDINGS: Surgical changes and devices: None. Bones and chest wall: No definitive acute fracture. There is a nonacute fracture involving the lateral aspect of the right third rib. No suspicious bony lesions. Overlying soft tissues appear unremarkable. Lungs and pleura: No pleural effusions or pneumothorax. Lungs appear clear. Mediastinum: Mediastinal contours appear normal. Heart size is normal. IMPRESSION: No definitive acute right rib fracture. A nonacute right third rib fracture is noted. Dictated by: Magdalene Barrientos M.D. on 03/11/2018 at 13:41 Approved by: Magdalene Barrientos M.D. on 03/11/2018 at 13:44 R forearm: Radiologist's impression: PROCEDURE: XR FOREARM RT 2V INDICATIONS: Pain to ulnar aspect of forearm status post ground level fal TECHNIQUE: 2 views of the forearm were acquired. COMPARISON: [facility], CR, XR WRIST LT MIN 3V, 03/11/2018, 12:40. FINDINGS: Bones: There is a comminuted fracture of the distal radial metaphysis with impaction and angulation. No suspicious bony lesions. Soft tissues: No suspicious soft tissue calcifications or masses. IMPRESSION: Distal radial metaphyseal fracture. Dictated by: Magdalene Barrientos M.D. on 03/11/2018 at 13:39 Approved by: Magdalene Barrientos M.D. on 03/11/2018 at 13:41 MDM Narrative Medical decision making narrative: X-ray of the right ribcage was obtained was negative for any acute findings. X-rays of the left forearm and wrist shows a distal radial impacted fracture. She is placed in a sugar-tong splint for comfort and support along with a sling. [id number] Tylenol or Motrin as needed for discomfort. Small amount of Broussard is prescribed for breakthrough pain. She is referred to Orthopedics for further evaluation. Patient call the office tomorrow to schedule follow-up appointment in the next few days. For any worsening symptoms return to the emergency room. Patient had no further episodes of vomiting while in the emergency room and no headache no head discomfort. Will hold off on head CT at this time. Follow up with primary care provider. Head injury instructions provided with warning signs to return emergency room. Discharge Plan Departure Patient Disposition: Home Clinical Impression: Closed left radial fracture Discharge Date/Time: 03/11/18 14:50 Interventions: ED Discharge Assessment Last Done: 03/11/18 14:50 Instructions: DI for Forearm Fracture, DI for Closed Head Injury Activity Restrictions/Additional Instructions: X-ray of the left wrist shows a distal radial fracture. You have been placed in a splint for comfort and support use as directed along with sling. Use over- the-counter ibuprofen or Tylenol as needed for discomfort. Small amount of Broussard is prescribed for breakthrough pain use as directed no driving while on the Broussard. Ice and elevation help with any swelling. You referred Orthopedics for further evaluation and treatment call the number to schedule follow-up appointment. Head injury instructions are provided with warning signs to return to the emergency room. For any worsening symptoms return to the emergency room. X-ray of the right ribcage was obtained was negative for any acute findings. Prescriptions: New hydrocodone-acetaminophen 5-325 mg tablet 1 tab PO Q4-6H PRN (Reason: pain) Qty: 10 RF: 0 No Action omega-3 fatty acids [Fish Oil Concentrate] 1,000 mg capsule 1,000 mg PO DAILY RF: 0 [id number]-[id number]-bjxtepeb [Excedrin Migraine] 250-250-65 mg tablet 1 tab PO Q4-6H PRN (Reason: Migraine Headache) RF: 0 multivitamin tablet 1 tab PO DAILY RF: 0 propranolol 20 mg tablet 20 mg PO BIDP PRN (Reason: anxiety) 30 Days Qty: 60 RF: 2 cholecalciferol (vitamin D3) 2,000 unit capsule 2,000 unit PO DAILY 90 Days Qty: 90 RF: 3 venlafaxine 150 mg capsule,extended release 24hr 3 cap PO DAILY RF: 0 hydroxyzine HCl 50 MG tablet 25 - 50 mg PO HS RF: 0 Referrals: Velasquez Cortez MD [Physician] - <Elizabeth Paul DO - Last Filed: 03/16/18 07:27> Cosign ED Attending Cosignature Attestation: I was immediately available in the department for consultation. Documentation has been reviewed. I agree with assessment and plan.
[2018-03-11 14:50] VITALS: BP 134/69; PULSE 74; RESP 15; O2SAT 100
== END 2018-03-11 14:50 | disposition home or self-care (01) ==
PROVIDERS: Emergency Provider Nurse Practitioner Family
DX: S52.92XA Unspecified fracture of left forearm, initial encounter for closed fracture (principal); W01.0XXA Fall on same level from slipping, tripping and stumbling without subsequent striking against object, initial encounter
CPT/HCPCS: 29125; 29240; 71101; 73090; 73110; 99282; 99283

== ENCOUNTER → 2018-03-12 16:02 | Outpatient (CLI) | payer OTHER, MEDICAID, SELFPAY ==
[2018-03-12 17:03] LABS: Add Manual Diff / Slide Review NO; Basophils Percent Auto 0.3 % (0-2); Eosinophils Percent Auto 1.2 % (2-4); Lymphocytes Percent Auto 45.8 % (25-40); Mean Corpuscular HGB Conc 34.1 % (30-36); Mean Corpuscular Hemoglobin 29.4 PG (26-34); Mean Corpuscular Volume 86.1 fL (80-100); Monocytes Percent Auto 10.6 % (3-14); Neutrophils Absolute Auto 2900 /uL (3000-5900); Neutrophils Percent Auto 42.1 % (50-75); Platelet Count 296 X10^3/uL (150-400); Red Blood Cell Count 5.11 X10^6/uL (4.0-5.2); Red Cell Distribution Width 13.2 % (11.6-14.8); White Blood Cell Count 6.8 X10^3/uL (4.5-11.0)
[2018-03-12 17:19] LABS: BUN Creatinine Ratio 16.3 (6-22); Blood Urea Nitrogen 13 mg/dL (7-17); Calcium 9.7 mg/dL (8.4-10.2); Carbon Dioxide 31 mmol/L (22-32); Chloride 103 mmol/L (98-107); Estimated Glomerular Filt Rate > 60.0 mL/min (>60); Glucose 84 mg/dL (70-100); HEMOLYSIS < 15 (0-50); Sodium 145 mmol/L (137-145)
== END ==
PROVIDERS: Visit Provider Orthopaedic Surgery
DX: S52.532A Colles' fracture of left radius, initial encounter for closed fracture (principal)
CPT/HCPCS: 36415; 80048; 85025

== ENCOUNTER 2018-03-19 13:43 | Day surgery (SDC) | payer OTHER, MEDICAID, SELFPAY ==
[2018-03-18 07:41] VITALS: BMI 30.9
[2018-03-19 14:11] VITALS: BP 155/93; PULSE 57; RESP 16; TEMP 36.4; O2SAT 95; BMI 31.8
[2018-03-19] MEDS: LACTATED RINGERS 1,000 ML 42 ML IV (15:34)
--- NOTE | 2018-03-19 15:41 | PM.PREOP ---
Pre-operative Note Interval Note Pre-op Check: Yes History & Physical Reviewed by Physician and Yes Exam Performed Changes: No
--- NOTE | 2018-03-19 15:43 | PM.PREOP ---
Pre-operative Note Interval Note Pre-op Check: Yes History & Physical Reviewed by Physician and Yes Exam Performed Changes: No
--- NOTE | 2018-03-19 15:46 | SUR.OPER ---
Supine on padded OR bed, head on pillow, right arm secured on padded arm board at <90 degrees abduction, left arm on sterile field, legs uncrossed, safety belt at thigh, tape over blanket over lower legs.
[2018-03-19] MEDS: MIDAZOLAM 2 MG/2 ML VIAL IV (15:47)
[2018-03-19] MEDS: CEFAZOLIN VIAL 1 GM in SODIUM CHLORIDE 0.9% 100 ML 200 ML IV (15:52)
--- NOTE | 2018-03-19 16:22 | PM.OP.1 ---
Operative Date/Time/Diagnoses Date of procedure: 03/19/18 Time of procedure: 16:22 Pre-op diagnosis: Displaced left distal radius fracture Post-op diagnosis: same Procedure & Clinicians Procedure: closed reduction percutaneous pinning left distal radius fracture Same procedure as scheduled: Yes Indications: The patient presents today for reduction and pinning of left distal radius fracture. The nature of the procedure including the risks and benefits, alternatives, postoperative course and expected outcome were discussed and all questions answered. Consent was obtained. Operative site confirmed and marked. Surgeon: Velasquez Cortez Click Yes if Unassisted: Yes Anesthesia Type: General Operative Notes Findings: The distal radius fracture was still mobile and easily reduced to near anatomic position. Closure Type: not applicable Specimen(s): none sent Implants & Drains: K-wires Applied: implant(s) Estimated Blood Loss (mL): 0 Blood products transfused: none Procedure in detail: The patient was taken the operative suite and placed under general anesthesia. She received prophylactic antibiotics prior to surgery. The arm was prepped and draped in usual sterile fashion. the fracture was reduced with traction and reduction of the deformity. The fracture was then stabilized with 2 0.62 crossed K-wires. A nice reduction was obtained with good position of the hardware. The wires were cut and left above the skin and capped. 0 form dressing was applied. The patient was then placed into a sugar-tong plaster splint that was well padded and molded. The patient tolerated procedure well and was returned to recovery room in good condition. Complications: none Condition: stable Disposition: same day surgery Plan for aftercare: Patient will keep the splint intact until follow-up. Clinic follow-up in 10-14 days. She will then be switched to a cast. K-wire removal at approximately 4 weeks.
[2018-03-19] MEDS: fentaNYL 100 MCG/2 ML INJ 50 MCG IV ×4 (16:25→16:53)
[2018-03-19 16:27] VITALS: BP 144/91; PULSE 66; RESP 15; TEMP 36; O2SAT 99
[2018-03-19 16:37] VITALS: BP 138/94; PULSE 67; RESP 13; O2SAT 97
[2018-03-19 16:47] VITALS: BP 139/94; PULSE 68; RESP 16; O2SAT 98
[2018-03-19 16:52] VITALS: BP 126/95; PULSE 68; RESP 13; TEMP 36.1; O2SAT 97
[2018-03-19] MEDS: OXYCODONE/ACETAMINOPHEN 5/325 TABLET 1 TAB PO (16:59)
[2018-03-19 17:02] VITALS: BP 140/91; PULSE 70; RESP 12; TEMP 36.8; O2SAT 96
== END 2018-03-19 17:42 | disposition home or self-care (01) ==
PROVIDERS: Visit Provider Orthopaedic Surgery
PROC: (CPT 25606; principal; 2018-03-19 15:15)
DX: S52.532A Colles' fracture of left radius, initial encounter for closed fracture (principal); W19.XXXA Unspecified fall, initial encounter; G47.33 Obstructive sleep apnea (adult) (pediatric); E66.9 Obesity, unspecified; Z68.30 Body mass index [BMI] 30.0-30.9, adult; I10 Essential (primary) hypertension; F17.210 Nicotine dependence, cigarettes, uncomplicated
CPT/HCPCS: 25606; J0360; J0690; J2250; J2405; J2704; J3010

== ENCOUNTER 2018-03-31 13:03 | Emergency (ER) | payer OTHER, MEDICAID, SELFPAY ==
[2018-03-31 13:20] VITALS: BP 155/98; PULSE 77; RESP 16; TEMP 36.6; O2SAT 96; BMI 34.0
--- NOTE | 2018-03-31 15:55 | ED.SKABFB ---
HPI - Skin/Abscess/Foreign Bdy General Chief complaint: Skin/Abscess/Foreign Body Stated complaint: states really infected sores all over, pain Time Seen by Provider: 03/31/18 15:35 Source: patient Mode of arrival: ambulatory Limitations: no limitations History of Present Illness HPI narrative: Patient is a 52-year-old female here for evaluation of a possible infection and pain to her left wrist. She states approximately 2 weeks ago she had a fixation done by Dr. Cortez with Orthopedics after sustaining a fracture. Since then she has had pain and swelling and redness over the area. She no longer has the splint over the area. No fevers. Has not tried anything for prior to arrival. Related Data Home Medications Medication Instructions Recorded Confirmed multivitamin tablet 1 tab PO DAILY 01/13/18 03/31/18 omega-3 fatty acids 1,000 mg 1,000 mg PO DAILY 01/13/18 03/31/18 capsule venlafaxine 3 cap PO DAILY 01/26/18 03/31/18 hydroxyzine HCl 50 mg PO BEDTIME 03/31/18 03/31/18 mupirocin 1 applic TOPICAL DIRECTED 03/31/18 03/31/18 oxycodone-acetaminophen 1 tab PO DIRECTED 03/31/18 03/31/18 oxycodone-acetaminophen 1 tab PO Q4-6H PRN 03/31/18 03/31/18 Previous Rx's Medication Instructions Recorded cholecalciferol (vitamin D3) 2,000 2,000 unit PO DAILY 90 Days #90 cap 01/13/18 unit capsule propranolol 20 mg tablet 20 mg PO BIDP PRN 30 Days #60 tab 01/13/18 cephalexin 500 mg PO QID 10 Days #40 cap 03/31/18 Allergies Allergy/AdvReac Type Severity Reaction Status Date / Time lamotrigine [LAMOTRIGINE] Allergy Severe (LAMICTAL) Verified 03/31/18 13:20 REALLY BAD NIGHTMARES tramadol [TRAMADOL] Allergy Severe SOB AND Verified 03/31/18 13:20 RASH clonidine [CLONIDINE] Allergy Intermediate PATIENT Verified 03/31/18 13:20 CAN'T REMEMBER...IT JUST WASN'T GOOD FOR ME Sulfa (Sulfonamide Allergy Intermediate RASH Verified 03/31/18 13:20 Antibiotics) [SULFA (SULFONAMIDE ANTIBIOTICS)] bupropion [BUPROPION] AdvReac Unknown SOB and Verified 03/31/18 13:20 panic reported by patient Review of Systems Constitutional Denies fever(s) Cardiovascular Denies chest pain and Denies dyspnea Respiratory Denies dyspnea Gastrointestinal Gastrointestinal: Denies abdominal pain, Denies nausea and Denies vomiting Musculoskeletal Comments: Left wrist pain and swelling Integumentary/Breasts Comments: Redness and swelling around the left wrist Neurologic Comments: Tingling to the left hand Hematologic/Lymphatic Denies easy bleeding and Denies easy bruising PFS Medical History History of hysterectomy (Acute) Surgical History Hx of bilateral breast reduction surgery (Acute) Hx of tonsillectomy (Acute) Family History Brother Age: 39 Asthma Obesity Hypertension High cholesterol Child Age: 23 Bipolar 1 disorder Hypertension Father Age: 70 Type 2 diabetes mellitus with complication Heart disease Hypertension High cholesterol Mental health problem Grandfather Hypertension Mental health problem Grandmother High cholesterol Mother Age: 70 Uncomplicated asthma, unspecified asthma severity Melanoma Restless legs Cancer Hypertension Grandmother Mental health problem Sister Age: 41 Mental health problem Addiction Hypertension PTSD (post-traumatic stress disorder) Anxiety and depression Social History household members: none Smoking Status: Current every day smoker alcohol intake: current Exam Initial Vital Signs Initial Vital Signs: Vital Signs Temperature 97.8 F 03/31/18 13:20 Pulse Rate 77 03/31/18 13:20 Respiratory Rate 16 03/31/18 13:20 Blood Pressure 155/98 H 03/31/18 13:20 Pulse Oximetry 96 03/31/18 13:20 Const General: cooperative, No comfortable (Uncomfortable appearing), well developed and well groomed Orientation: alert, awake and oriented x3 HENMT Head: normal to inspection and normocephalic Resp Effort & Inspection: normal respiratory effort Auscultation: clear to auscultation bilaterally Cardio Rate: regular rate Rhythm: regular rhythm Pulses: radial pulses present Skin Other: Redness and swelling dorsal aspect of the left hand from the MCP joints to the mid forearm and extending to the volar aspect. Neuro Other: Sensation intact to light touch left hand Extrem Other: Decreased range of motion to the left wrist Psych Appearance: grossly normal and well kempt Course Orders Ordered: ED Orders 03/31/18 16:07 XR wrist LT 2V Stat Basic Metabolic Panel Stat Blood Culture Stat C-Reactive Protein Quant Stat Complete Blood Count AUTO DIFF Stat Erythrocyte Sedimentation Rate Stat Cefazolin Sodium/Dextrose (Ancef) 2 gm in 100 mls @ 200 mls/hr IV NOW ONE Stop: 03/31/18 16:55 Discontinued Medications Sodium Chloride (Normal Saline 0.9%) 1,000 mls @ 1,000 mls/hr IV BOLUS ONE Stop: 03/31/18 17:06 Morphine Sulfate (Morphine) 4 mg IV NOW ONE Stop: 03/31/18 16:10 Vital Signs - 8 hr 03/31/18 13:20 Temperature 97.8 F Pulse Rate 77 Respiratory Rate 16 Blood Pressure 155/98 H Pulse Oximetry 96 MDM - Skin/Abscess/Foreign Bdy Imaging Data Wrist x-ray: Radiologist's impression: [address] [address] XRay Report Signed Patient: Makayla Mohan [facility]#: [id number] : 1965Acct:[id number] Age/Sex: 52 / FDate of Service: 03/31/18 Loc: ED Accession Number: [id number] Procedure: XR wrist LT 2V Ordering Provider: Rosalio Joya D.O. PROCEDURE: XR WRIST LT 2V INDICATIONS: LEFT WRIST pain after surgery TECHNIQUE: 2 views of the wrist were acquired. COMPARISON: [facility], , XR WRIST LT MIN 3V, 03/11/2018, 12:40. FINDINGS: Bones: Patient is status post fixation of previously noted distal radial shaft fracture with 2 fixation pin placement through the fracture site. Alignment of left wrist is anatomic. No new fracture or dislocation is seen. Scaphoid view: Scaphoid is grossly intact. Soft tissues: No suspicious soft tissue calcifications. Mild soft tissue swelling around wrist is seen. IMPRESSION: Interval surgical fixation of distal radial shaft. Anatomic wrist alignment. Dictated by: Sebastian Jimenez M.D. on 03/31/2018 at 16:30 Approved by: Sebastian Jimenez M.D. on 03/31/2018 at 16:31 [facility] Narrative Medical decision making narrative: I discussed the case with Dr. Cortez with Orthopedics who came to the emergency department to evaluate the patient. He did remove the 2 K-wires located in her left wrist. He recommended that we give her Ancef here in the emergency department the send her home with Keflex. X-ray does not show any acute fractures. Patient already has pain medications at home and has a follow-up appointment with Dr. Cortez already scheduled. Patient was given return precautions. She expressed understanding and agreement with plan. Discharge Plan Departure Patient Disposition: Home Clinical Impression: Cellulitis Instructions: DI for Cellulitis -- Adult, How to Take Care of Your Splint Activity Restrictions/Additional Instructions: Keep all of your scheduled appointments with the orthopedic providers. Take all of the antibiotics as directed. Your 1st dose can be this evening after you pick it up from the pharmacy. Return to the emergency department for any new or worsening symptoms Prescriptions: New cephalexin 500 mg capsule 500 mg PO QID 10 Days Qty: 40 RF: 0 No Action omega-3 fatty acids [Fish Oil Concentrate] 1,000 mg capsule 1,000 mg PO DAILY RF: 0 multivitamin tablet 1 tab PO DAILY RF: 0 propranolol 20 mg tablet 20 mg PO BIDP PRN (Reason: anxiety) 30 Days Qty: 60 RF: 2 cholecalciferol (vitamin D3) 2,000 unit capsule 2,000 unit PO DAILY 90 Days Qty: 90 RF: 3 hydroxyzine HCl 50 mg tablet 50 mg PO BEDTIME RF: 0 oxycodone-acetaminophen 5-325 mg tablet 1 tab PO DIRECTED RF: 0 mupirocin 2 % ointment 1 applic Topical DIRECTED RF: 0 oxycodone-acetaminophen 5-325 mg tablet 1 tab PO Q4-6H PRN (Reason: Pain, Severe) RF: 0 venlafaxine 150 mg capsule,extended release 24hr 3 cap PO DAILY RF: 0
--- NOTE | 2018-03-31 16:07 | DI.RAD.S_ITS ---
PROCEDURE: XR WRIST LT 2V INDICATIONS: LEFT WRIST pain after surgery TECHNIQUE: 2 views of the wrist were acquired. COMPARISON: [facility], CR, XR WRIST LT MIN 3V, 03/11/2018, 12:40. FINDINGS: Bones: Patient is status post fixation of previously noted distal radial shaft fracture with 2 fixation pin placement through the fracture site. Alignment of left wrist is anatomic. No new fracture or dislocation is seen. Scaphoid view: Scaphoid is grossly intact. Soft tissues: No suspicious soft tissue calcifications. Mild soft tissue swelling around wrist is seen. IMPRESSION: Interval surgical fixation of distal radial shaft. Anatomic wrist alignment. Dictated by: Sebastian Jimenez M.D. on 03/31/2018 at 16:30 Approved by: Sebastian Jimenez M.D. on 03/31/2018 at 16:31
[2018-03-31] MEDS: MORPHINE 4 MG/ML INJ IV ×2 (16:36→17:34)
[2018-03-31 16:40] VITALS: BP 136/84; PULSE 83; RESP 16; O2SAT 100
[2018-03-31] MEDS: ONDANSETRON 4 MG/2 ML INJ IV (17:34)
[2018-03-31] MEDS: CEFAZOLIN 2 GM/100 ML FROZ.PIGGY IV (17:43)
[2018-03-31 18:33] VITALS: BP 143/82; PULSE 83; RESP 18; O2SAT 100
== END 2018-03-31 18:37 | disposition home or self-care (01) ==
PROVIDERS: Emergency Provider Emergency Medicine
DX: L03.114 Cellulitis of left upper limb (principal); Z98.890 Other specified postprocedural states
CPT/HCPCS: 29125; 29240; 36591; 73100; 96365; 96375; 96376; 99283; 99284; J0690; J2270; J2405

== ENCOUNTER 2018-09-20 21:07 | Emergency (ER) | payer OTHER, MEDICAID, SELFPAY ==
[2018-09-20 21:12] VITALS: BP 165/108; PULSE 78; RESP 18; TEMP 36.2; O2SAT 99; BMI 31.1
== END 2018-09-20 21:28 | disposition left against medical advice (07) ==
PROVIDERS: Emergency Provider Emergency Medicine
DX: I10 Essential (primary) hypertension (principal)
CPT/HCPCS: 99282

== ENCOUNTER 2019-01-11 06:24 | Day surgery (SDC) | payer OTHER, MEDICAID, SELFPAY ==
[2019-01-11] VITALS (7 sets, daily range): BP systolic 104–146; BP diastolic 79–100; PULSE 62–75; RESP 8–17; TEMP 36.4–36.7; O2SAT 96–99; BMI 33.2
--- NOTE | 2019-01-11 | PATH_ITS ---
[facility] Accession Number: [id number] . 01 Material submitted: . body - LESION ON HEMORRHOID SCAR . 01 Diagnosis: Lesion on Hemorrhoid Scar, Biopsy: Ulceration with adjacent acanthosis, hypergranulosis, spongiosis, and mild mixed inflammation. . Note: Overall, the changes are most suggestive of an irritant contact dermatitis with superimposed lichen simplex chronicus changes. While the verrucous surface changes are most likely secondary to persistent rubbing, in the proper clinical setting, the differential diagnosis could include condyloma acuminatum (I consider this unlikely). Although there is mild keratinocytic atypia, these changes are favored to be reactive. Clinical pathological correlation is advised for definitive diagnosis. [facility]/01/17/2019 . 01 Comment: Initial and deeper levels were examined in an effort to better define this process. No fungi are detected with a periodic acid-Reji stain. P16 and Ki-67 immunostain performed support the above diagnosis. . 01 Electronically signed: . Alma Larios MD, Dermatopathologist NPI- [id number] . 01 Gross description: . LESION ON HEMORRHOID SCAR: Received in formalin is 1 piece of SKIN FRAGMENT measuring 0.5 x 0.4 x 0.2 cm which is inked, bisected and submitted in toto in 1 cassette. /CKI /CKI . 01 Pathologist provided ICD-10: L98.9 . 01 CPT . 132152, 443034, C55796, C46873 Performed at: [address], [place], [place] [id number] MD Velasquez Hdz MD Phone: [phone]
[2019-01-11] MEDS: SODIUM CHLORIDE 0.9% 1,000 ML 84 ML IV (07:42)
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
--- NOTE | 2019-01-11 07:58 | PM.PREOP ---
Pre-operative Note Interval Note History & Physical reviewed/Exam performed by Physician: Yes Changes to H&P: No ASA Class (for procedural sedation): II
[2019-01-11] MEDS: fentaNYL 250 MCG/5 ML INJ IV (08:14)
[2019-01-11] MEDS: MIDAZOLAM 5 MG/5 ML VIAL IV (08:15)
--- NOTE | 2019-01-11 08:29 | PM.OP.ENDO ---
Operative Date/Time/Diagnoses Date of procedure: 01/11/19 Time of procedure: 08:30 Pre-op diagnosis: Screening exam Post-op diagnosis: same (Small lesion on scarring on an internal hemorrhoid near the anal verge) Procedure & Clinicians Study performed: Colonoscopy with cold biopsy Same procedure as scheduled: Yes Indications: Patient due for screening examination. Surgeon: Gilmer Whitley Procedure Notes SCOAP/Timeout: Performed Procedure in detail: The patient was placed in the left lateral decubitus position and underwent IV sedation directed by the surgeon consisting of fentanyl and Versed. Digital exam was remarkable for a visible external hemorrhoid without ulceration. The scope was inserted and advanced through the rectum into the sigmoid, descending, transverse, and ascending colon. No lesions were seen going in. The cecum was reached identified by the ileocecal valve and the appendiceal opening. The ileocecal valve was successfully cannulated. The terminal ileum was normal in appearance. The scope was gradually brought out. No Polyps were found until I reached the rectum. The scope ultimately was retroflexed in the rectum. The appearance was remarkable for an irregular lesion on what appeared to be a scar on hemorrhoid near the anal verge. This was removed with cold biopsy forceps. The scope was removed and the patient tolerated the procedure well. The prep was excellent. I saw no evidence of colitis or Crohn's disease Of note: If the lesion on the hemorrhoidal scar is neoplastic the whole scar should be removed. Scope withdrawal time: 8.5 minutes Sedation minutes: 28 Findings: internal hemorrhoids Specimen(s): other (Lesion on scar at hemorrhoids) Complications: none Recommendations: Colonscopy in 5 years (Unless the lesion is not neoplastic. In that case 10 years more appropriate) Follow up: as needed Disposition: PACU
--- NOTE | 2019-01-11 08:48 | SUR.PHASEI ---
HOB up, tolerating juice well, talking about potential career change and options.. Oriented. Resp unlabored, ready to transfer to [employer].
== END 2019-01-11 09:25 | disposition home or self-care (01) ==
PROVIDERS: PCP Naturopath; Visit Provider Specialist
PROC: 0DJD8ZZ Inspection of Lower Intestinal Tract, Via Natural or Artificial Opening Endoscopic (ICD-10-PCS; CPT 45378; principal; 2019-01-11 07:45)
DX: Z12.11 Encounter for screening for malignant neoplasm of colon (principal); K64.8 Other hemorrhoids; F17.210 Nicotine dependence, cigarettes, uncomplicated
CPT/HCPCS: 45380; 99152; J2250; J3010

== ENCOUNTER → 2019-02-23 10:54 | Outpatient (CLI) | payer OTHER, MEDICAID, SELFPAY ==
[2019-02-23 11:34] LABS: Add Manual Diff / Slide Review NO; Basophils Absolute Auto 0 /uL (0-100); Basophils Percent Auto 0.5 % (0-2); Eosinophils Absolute Auto 300 /uL (0-450); Eosinophils Percent Auto 3.1 % (2-4); Hematocrit 41.3 % (36-46); Hemoglobin 14.4 g/dL (12.0-16.0); Lymphocytes Absolute Auto 3700 /uL (1100-4500); Lymphocytes Percent Auto 44.3 % (25-40); Mean Corpuscular HGB Conc 34.9 % (30-36); Mean Corpuscular Hemoglobin 30.2 PG (26-34); Mean Corpuscular Volume 86.6 fL (80-100); Monocytes Absolute Auto 600 /uL (0-900); Monocytes Percent Auto 6.7 % (3-14); Neutrophils Absolute Auto 3800 /uL (1500-7000); Neutrophils Percent Auto 45.4 % (50-75); Platelet Count 337 X10^3/uL (150-400); Red Blood Cell Count 4.76 X10^6/uL (4.0-5.2); Red Cell Distribution Width 13.1 % (11.6-14.8); White Blood Cell Count 8.3 X10^3/uL (4.5-11.0)
[2019-02-23 11:50] LABS: Alanine Aminotransferase 20 IU/L (9-52); Albumin 4.3 g/dL (3.5-5.0); Albumin Globulin Ratio 1.4 (1.0-2.8); Alkaline Phosphatase 81 U/L (38-126); Aspartate Aminotransferase 20 IU/L (14-36); BUN Creatinine Ratio 16.3 (6-22); Bilirubin Total 0.5 mg/dL (0.2-1.3); Blood Urea Nitrogen 13 mg/dL (7-17); Calcium 9.5 mg/dL (8.4-10.2); Carbon Dioxide 27 mmol/L (22-32); Chloride 105 mmol/L (98-107); Cholesterol 249 mg/dL (140-199); Estimated Glomerular Filt Rate > 60.0 mL/min (>60); Glucose 91 mg/dL (70-100); HDL Cholesterol 45 mg/dL (40-60); HEMOLYSIS < 15 (0-50); LDL Cholesterol Calculated 179 mg/dL (<100); Sodium 141 mmol/L (137-145); Total Protein 7.3 g/dL (6.3-8.2); Triglycerides 127 mg/dL (35-150)
[2019-02-23 11:55] LABS: Erythrocyte Sedimentation Rate 6 MM/HR (0-20)
== END ==
PROVIDERS: PCP Naturopath; Visit Provider Naturopath
DX: Z00.01 Encounter for general adult medical examination with abnormal findings (principal)
CPT/HCPCS: 36415; 80053; 80061; 85025; 85651; 86140

== ENCOUNTER 2019-08-11 23:18 | Emergency (ER) | payer OTHER, MEDICAID, SELFPAY | END 2019-08-11 23:20 | disposition left against medical advice (07) | PROVIDERS: Emergency Provider Emergency Medicine; PCP Naturopath | CPT/HCPCS: 99281 ==

== ENCOUNTER → 2020-11-02 11:08 | Outpatient (CLI) | payer OTHER, MEDICAID, SELFPAY ==
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
== END ==
PROVIDERS: Referring Provider Psychiatry & Neurology Psychiatry; Visit Provider Psychiatry & Neurology Psychiatry
DX: K51.90 Ulcerative colitis, unspecified, without complications (principal); M54.9 Dorsalgia, unspecified; Z71.3 Dietary counseling and surveillance
CPT/HCPCS: 97802

== ENCOUNTER → 2022-06-23 13:40 | Outpatient (CLI) | payer OTHER, MEDICAID, SELFPAY ==
[2022-06-23 14:08] LABS: Add Manual Diff / Slide Review NO; Basophils Absolute Auto 100 /uL (0-100); Basophils Percent Auto 0.7 % (0-2); Eosinophils Absolute Auto 200 /uL (0-450); Eosinophils Percent Auto 2.8 % (2-4); Hematocrit 46.8 % (36-46); Hemoglobin 15.6 g/dL (12.0-16.0); Lymphocytes Absolute Auto 3100 /uL (1100-4500); Lymphocytes Percent Auto 35.8 % (25-40); Mean Corpuscular HGB Conc 33.3 % (30-36); Mean Corpuscular Hemoglobin 28.9 PG (26-34); Mean Corpuscular Volume 86.7 fL (80-100); Monocytes Absolute Auto 600 /uL (0-900); Monocytes Percent Auto 6.9 % (3-14); Neutrophils Absolute Auto 4700 /uL (1500-7000); Neutrophils Percent Auto 53.8 % (50-75); Platelet Count 347 X10^3/uL (150-400); Red Blood Cell Count 5.39 X10^6/uL (4.0-5.2); Red Cell Distribution Width 13.7 % (11.6-14.8); White Blood Cell Count 8.8 X10^3/uL (4.5-11.0)
[2022-06-23 14:30] LABS: Hemoglobin A1C% w Est Avg Glu 5.2 % (4.0-6.0)
[2022-06-23 14:45] LABS: Alanine Aminotransferase 17 IU/L (<35); Albumin 4.7 g/dL (3.5-5.0); Albumin Globulin Ratio 1.3 (1.0-2.8); Alkaline Phosphatase 100 U/L (38-126); Aspartate Aminotransferase 20 IU/L (14-36); Bilirubin Total 0.8 mg/dL (0.2-1.3); Blood Urea Nitrogen 12 mg/dL (7-17); Calcium 9.7 mg/dL (8.4-10.2); Carbon Dioxide 25 mmol/L (22-32); Chloride 106 mmol/L (98-107); Cholesterol 297 mg/dL (140-199); Estimated Glomerular Filt Rate > 60 mL/min (>60); Globulin 3.6 g/dL (1.7-4.1); Glucose 86 mg/dL (70-100); HDL Cholesterol 48 mg/dL (40-60); HEMOLYSIS < 15 (0-50); LDL Cholesterol Calculated 204 mg/dL (<100); Potassium 3.8 mmol/L (3.4-5.1); Sodium 142 mmol/L (137-145); Total Protein 8.3 g/dL (6.3-8.2); Triglycerides 227 mg/dL (35-150)
[2022-06-23 15:10] LABS: TSH w/ Reflex to FT4 2.24 uIU/mL (0.47-4.68)
[2022-06-23 15:29] LABS: Vitamin B12 342 pg/mL (239-931)
== END ==
PROVIDERS: PCP Family Medicine; Referring Provider Family Medicine; Visit Provider Family Medicine
DX: E78.2 Mixed hyperlipidemia (principal); I10 Essential (primary) hypertension; L65.9 Nonscarring hair loss, unspecified; R63.5 Abnormal weight gain
CPT/HCPCS: 36415; 80053; 80061; 82306; 82607; 83036; 84443; 85025

== ENCOUNTER → 2022-06-24 12:52 | Outpatient (CLI) | payer OTHER, MEDICAID, SELFPAY ==
[2022-06-25 10:43] LABS: Fecal Immunochemical Test Negative (Negative)
== END ==
PROVIDERS: PCP Family Medicine; Referring Provider Family Medicine; Visit Provider Family Medicine
DX: Z12.11 Encounter for screening for malignant neoplasm of colon (principal); Z12.39 Encounter for other screening for malignant neoplasm of breast
CPT/HCPCS: 82274

== ENCOUNTER → 2022-08-15 08:52 | Outpatient (CLI) | payer OTHER, MEDICAID, SELFPAY ==
--- NOTE | 2022-08-15 08:53 | DI.MG.S_ITS ---
BILATERAL DIGITAL DIAGNOSTIC MAMMOGRAM 3D/2D: 08/15/2022 CLINICAL: Left breast pain. Baseline. No prior exams were available for comparison. There are scattered areas of fibroglandular density in both breasts (category b / 25%-50% glandular tissue). No significant masses, calcifications, or other findings are seen in either breast. IMPRESSION: NEGATIVE There is no mammographic evidence of malignancy. A 1 year screening mammogram is recommended. Based on the Tyrer Cuzick model (a risk assessment model) the patient's lifetime risk is 7.7% and her 10 year risk is 2.2%. According to the ACR, ACS, and NCCN guidelines, an annual breast MRI exam along with mammogram is recommended if the patient's lifetime risk is 20% or greater. This exam was interpreted at Station ID: [id number]. NOTE: For mammograms, a report in lay terms will be sent to the patient. Approximately 15% of breast malignancies will not be visualized mammographically. In the management of a palpable breast mass, a negative mammogram must not discourage biopsy of a clinically suspicious lesion. Electronically Signed By: Asa Contreras M.D., jr/alonzo:08/15/2022 10:00:45 letter sent: Normal Exam ACR BI-RADS Category 1: Negative [id number]
== END ==
PROVIDERS: PCP Family Medicine; Referring Provider Family Medicine; Visit Provider Family Medicine
DX: N64.4 Mastodynia (principal)
CPT/HCPCS: 77066; G0279

== ENCOUNTER → 2023-08-21 14:46 | Outpatient (CLI) | payer OTHER, MEDICAID, SELFPAY | PROVIDERS: PCP Family Medicine; Visit Provider Nurse Practitioner Family | DX: T14.8XXA Other injury of unspecified body region, initial encounter (principal); N64.4 Mastodynia; T81.49XA Infection following a procedure, other surgical site, initial encounter | CPT/HCPCS: 87070; 87075; 87205 ==

== ENCOUNTER → 2023-08-27 09:49 | Outpatient (CLI) | payer OTHER, MEDICAID, SELFPAY | PROVIDERS: PCP Family Medicine; Referring Provider Family Medicine; Visit Provider Surgery | DX: S21.001A Unspecified open wound of right breast, initial encounter (principal); S21.002A Unspecified open wound of left breast, initial encounter; T86.828 Other complications of skin graft (allograft) (autograft); F17.210 Nicotine dependence, cigarettes, uncomplicated; L40.9 Psoriasis, unspecified; L98.8 Other specified disorders of the skin and subcutaneous tissue | CPT/HCPCS: 11042; 99204; 99213 ==

== ENCOUNTER → 2023-09-16 15:22 | Outpatient (CLI) | payer OTHER, MEDICAID, SELFPAY | PROVIDERS: PCP Family Medicine; Referring Provider Family Medicine; Visit Provider Surgery | DX: T81.89XA Other complications of procedures, not elsewhere classified, initial encounter (principal); S21.001A Unspecified open wound of right breast, initial encounter; S21.002A Unspecified open wound of left breast, initial encounter; L98.8 Other specified disorders of the skin and subcutaneous tissue; L40.9 Psoriasis, unspecified; I99.9 Unspecified disorder of circulatory system; F17.210 Nicotine dependence, cigarettes, uncomplicated | CPT/HCPCS: 11042 ==

== ENCOUNTER → 2023-09-29 11:01 | Outpatient (CLI) | payer OTHER, MEDICAID, SELFPAY | LOC: WC 11:02 | PROVIDERS: PCP Family Medicine; Referring Provider Family Medicine; Visit Provider Surgery | DX: T81.89XA Other complications of procedures, not elsewhere classified, initial encounter (principal); S21.001A Unspecified open wound of right breast, initial encounter; S21.002A Unspecified open wound of left breast, initial encounter; L98.8 Other specified disorders of the skin and subcutaneous tissue; L40.9 Psoriasis, unspecified; F17.210 Nicotine dependence, cigarettes, uncomplicated; R23.4 Changes in skin texture | CPT/HCPCS: 11042; 99212; 99213 ==

== ENCOUNTER → 2023-10-13 13:27 | Outpatient (CLI) | payer OTHER, MEDICAID, SELFPAY | LOC: WC 13:27 | PROVIDERS: PCP Family Medicine; Referring Provider Family Medicine; Visit Provider Surgery | DX: T81.89XD Other complications of procedures, not elsewhere classified, subsequent encounter (principal); S21.001D Unspecified open wound of right breast, subsequent encounter; S21.002D Unspecified open wound of left breast, subsequent encounter | CPT/HCPCS: 99213 ==

== ENCOUNTER → 2024-04-15 09:13 | Outpatient (CLI) | payer OTHER, MEDICAID, SELFPAY ==
[2024-04-15 10:00] LABS: Add Manual Diff / Slide Review NO; Basophils Absolute Auto 100 /uL (0-100); Basophils Percent Auto 0.7 % (0-2); Eosinophils Absolute Auto 200 /uL (0-450); Eosinophils Percent Auto 2.8 % (2-4); Lymphocytes Absolute Auto 3000 /uL (1100-4500); Lymphocytes Percent Auto 39.1 % (25-40); Mean Corpuscular Hemoglobin 29.9 PG (26-34); Mean Corpuscular Volume 87.9 fL (80-100); Monocytes Absolute Auto 600 /uL (0-900); Monocytes Percent Auto 8.2 % (3-14); Neutrophils Absolute Auto 3800 /uL (1500-7000); Neutrophils Percent Auto 49.2 % (50-75); Platelet Count 354 X10^3/uL (150-400); White Blood Cell Count 7.7 X10^3/uL (4.5-11.0)
[2024-04-15 10:34] LABS: Cholesterol 247 mg/dL (140-199); HDL Cholesterol 58 mg/dL (40-60); LDL Cholesterol Calculated 147 mg/dL (<100); Lipase 97 U/L (23-300); Triglycerides 210 mg/dL (35-150)
[2024-04-15 11:07] LABS: TSH w/ Reflex to FT4 2.11 uIU/mL (0.47-4.68)
[2024-04-15 17:48] LABS: Vitamin B12 718 pg/mL (239-931)
== END ==
PROVIDERS: PCP Family Medicine; Referring Provider Family Medicine; Visit Provider Family Medicine
DX: R10.9 Unspecified abdominal pain (principal)
CPT/HCPCS: 36415; 80061; 82607; 83036; 83690; 84443; 85025

== ENCOUNTER → 2024-04-26 14:23 | Outpatient (CLI) | payer OTHER, MEDICAID, SELFPAY ==
--- NOTE | 2024-04-26 14:25 | DI.CT.S_ITS ---
PROCEDURE: CT ABDOMEN PELVIS W CON INDICATIONS: abd pain x 3 yrs. hx of UC? TECHNIQUE: After the administration of intravenous contrast, axial sections acquired from the lung bases to the pubic symphysis. Coronal and sagittal reformats were performed. For radiation dose reduction, the following was used: automated exposure control, adjustment of mA and/or kV according to patient size. COMPARISON: [facility], CT, ABDOMEN/PELVIS WITH CONTRAST, 01/22/2017, 10:42. FINDINGS: Image quality: Diagnostic. Lower Chest: No significant findings. ABDOMEN: Liver: No solid mass. Gallbladder: No radiopaque gallstones or wall thickening. Biliary ducts: No biliary dilation. Pancreas: No ductal dilation. Spleen: Size is within normal limits. Adrenal Glands: No adrenal nodules. Kidneys and Ureters: No hydronephrosis. No solid mass. No complex renal cystic lesion which requires follow up. Stomach and Bowel: Normal colonic caliber, without significant wall thickening. Normal appendix. Peritoneum: No abnormal intraperitoneal fluid. No free air. Ventral Wall: No significant ventral hernia. Abdominal Nodes: No retroperitoneal or mesenteric adenopathy by size criteria. Vessels: Aorta and inferior vena cava are normal in size. PELVIS: Pelvic Organs: Unremarkable. Bladder: No bladder wall thickening, accounting for underdistention. Pelvic Nodes: No enlarged lymph nodes. Miscellaneous: No inguinal hernias are seen. Bones: No aggressive osseous abnormality. Multilevel disc space narrowing and endplate osteophyte formation, as well as facet hypertrophy. IMPRESSION: 1. No acute process. Dictated by: Mirna Dennison M.D. on 04/26/2024 at 16:53 Approved by: Mirna Dennison M.D. on 04/26/2024 at 16:57
[2024-04-26 14:57] LABS: Estimated Glomerular Filt Rate > 60 mL/min (>60)
== END ==
PROVIDERS: Radiology Diagnostic Radiology; PCP Family Medicine; Referring Provider Family Medicine; Visit Provider Family Medicine
DX: R10.84 Generalized abdominal pain (principal)
CPT/HCPCS: 36415; 74177; 82565; Q9967

== ENCOUNTER → 2024-04-29 10:29 | Outpatient (CLI) | payer OTHER, MEDICAID, SELFPAY ==
--- NOTE | 2024-04-29 10:30 | DI.US.S_ITS ---
LIMITED ULTRASOUND OF LEFT BREAST AND AXILLA: 04/29/2024 CLINICAL: Diffuse left breast pain. Comparison is made to exams dated: 04/29/2024 mammogram and 08/15/2022 mammogram - [facility]. Color flow and real-time ultrasound of the left breast upper outer quadrant and axilla regions were performed. Dobbins scale images of the real-time examination were reviewed. No significant abnormalities were seen sonographically in the left axilla. IMPRESSION: NEGATIVE There is no sonographic evidence of malignancy. No mass, cyst, or fluid collection. No enlarged left axillary lymph nodes. Exam findings were discussed with the patient. Patient is advised to monitor for significant change. Clinical follow-up as needed. A 1 year screening mammogram is recommended. This exam was interpreted at Station ID: [id number]. Electronically Signed By: Kory Cochran M.D. slc/:04/29/2024 12:13:06 letter sent: Normal Exam ACR BI-RADS Category 1: Negative
--- NOTE | 2024-04-29 10:30 | DI.MG.S_ITS ---
BILATERAL DIGITAL DIAGNOSTIC MAMMOGRAM 3D/2D: 04/29/2024 CLINICAL: Bilateral breast pain. Comparison is made to exam dated: 08/15/2022 mammogram - [facility]. The breasts are almost entirely fatty (category a/<25% glandular tissue). No significant masses, calcifications, or other findings are seen in either breast. Interval breast reduction. IMPRESSION: INCOMPLETE: NEED ADDITIONAL IMAGING EVALUATION No mammographic evidence of malignancy. No mass, suspicious calcifications, or fluid collection is seen. A targeted ultrasound is recommended and will immediately follow. Based on the Tyrer Cuzick model (a risk assessment model) the patient's lifetime risk is 5.1% and her 10 year risk is 1.6%. According to the ACR, ACS, and NCCN guidelines, an annual breast MRI exam along with mammogram is recommended if the patient's lifetime risk is 20% or greater. This exam was interpreted at Station ID: [id number]. NOTE: For mammograms, a report in lay terms will be sent to the patient. Approximately 15% of breast malignancies will not be visualized mammographically. In the management of a palpable breast mass, a negative mammogram must not discourage biopsy of a clinically suspicious lesion. Electronically Signed By: Kory Cochran M.D. slc/:04/29/2024 12:11:41 letter sent: Additional Imaging Needed ACR BI-RADS Category 0: Incomplete: Need Additional Imaging Evaluation
== END ==
PROVIDERS: PCP Family Medicine; Referring Provider Family Medicine; Visit Provider Family Medicine
DX: N64.4 Mastodynia (principal); R92.313 Mammographic fatty tissue density, bilateral breasts
CPT/HCPCS: 76642; 77066; G0279

== ENCOUNTER 2024-05-27 13:41 | Day surgery (SDC) | payer OTHER, MEDICAID, SELFPAY ==
--- NOTE | 2024-05-27 | PATH_ITS ---
[facility] Accession Number: [id number] No. of containers..01 Tissue . 01 Material submitted: . rectum - RECTUM POLYP . 01 Diagnosis: RECTUM POLYP: Inflammatory polyp. No dysplasia identified. [facility] 06/01/2024 1415 Local . 01 Electronically signed: . Velasquez Hdz MD, Pathologist NPI- [id number] . 01 Gross description: . Received in formalin with two patient identifiers and rectum polyp, is a single rick soft tissue fragment 0.6 cm in greatest dimension. Submitted entirely in cassette A1. ([id number]) /LEONARDO 06/01/20241414 Local . 01 Pathologist provided ICD-10: K51.40 . 01 CPT . 145134 Specimen Comment: A courtesy copy of this report has been sent to [facility] Pathology Performed at: [address] [id number] MD Velasquez Hdz MD Phone: [phone]
[2024-05-27 14:07] VITALS: BP 182/117; PULSE 88; RESP 12; TEMP 36.7; O2SAT 98
--- NOTE | 2024-05-27 14:23 | P.HP_ITS ---
History of Present Illness History of Present Illness Date Patient Seen: 05/27/24 Time Patient Seen: 14:23 Chief complaint: Colonoscopy Narrative: Is a 58-year-old white female, difficult historian due to traumatic brain injury, who states that she has had soft bowel movements with intermittent bleeding for a few months. She believes she was diagnosed with ulcerative colitis 16 years ago. This was in [place] we do not have pathology records. She does not recall what medication she was given for remission or suppression, as she says she was taking lots of medications at that time including her bipolar disorder medications. She had a colonoscopy performed in our system 5 years ago that did not demonstrate any evidence of inflammatory bowel disease. One polyp was noted. [facility] Medical History (Updated 05/27/24 @ 14:26 by Carlo Sheridan MD) Prolapsed internal hemorrhoids, grade 3 Personal history of colonic polyps Breast pain Vitiligo Rosacea Psoriasis Plantar warts Melanoma Acne (~1973) Depression (~1974) Anxiety (~1967) Headache (~1972) Measles (~1971) Chicken pox (~1969) Colon polyps (~2002) Post-traumatic headache, not intractable (12/23/16) Morbid obesity (11/10/16) Seizure disorder (08/07/15) Migraine without status migrainosus, not intractable (08/07/15) Allergic rhinitis (08/07/15) Suicide attempt Colitis (~1999) Surgical History Anesthesia History of section (~1994) History of hysterectomy (~2003) Hx of bilateral breast reduction surgery (~1997) Hx of tonsillectomy Family History Brother Age: 45 Asthma Obesity Hypertension High cholesterol Child Age: 29 Bipolar 1 disorder Hypertension Father Age: 76 Type 2 diabetes mellitus with complication Heart disease Hypertension High cholesterol Mental health problem Diabetes mellitus Grandfather Hypertension Mental health problem Grandmother High cholesterol Mother Age: 76 Uncomplicated asthma, unspecified asthma severity Melanoma Restless legs Cancer Hypertension Grandmother Mental health problem Sister Age: 47 Mental health problem Addiction Hypertension PTSD (post-traumatic stress disorder) Anxiety and depression Social History household members: none Smoking Status: Former smoker alcohol intake: current Meds Home Medications and Allergies Home Medications Medication Instructions Recorded Confirmed Type losartan 100 mg tablet 100 mg PO DAILY blood pressure #90 10/13/23 05/27/24 Rx tabs [id number]-ldutdygd 250 2 tab PO DIRECTED 05/27/24 05/27/24 History mg-250 mg-65 mg tablet (Excedrin Migraine) Allergies Allergy/AdvReac Type Severity Reaction Status Date / Time lamotrigine [LAMOTRIGINE] Allergy Severe (LAMICTAL) Verified 05/27/24 13:57 REALLY BAD NIGHTMARES lorazepam Allergy Severe rash Verified 05/27/24 13:57 tramadol [TRAMADOL] Allergy Severe SOB AND Verified 05/27/24 13:57 RASH amlodipine Allergy Intermediate Hives Verified 05/27/24 13:57 clonidine [CLONIDINE] Allergy Intermediate PATIENT Verified 05/27/24 13:57 CAN'T REMEMBER...IT JUST WASN'T GOOD FOR ME Sulfa (Sulfonamide Allergy Intermediate RASH Verified 05/27/24 13:57 Antibiotics) [SULFA (SULFONAMIDE ANTIBIOTICS)] pollen extracts Allergy Mild Verified 05/27/24 13:57 bupropion [BUPROPION] AdvReac Unknown SOB and Verified 05/27/24 13:57 panic reported by patient Review of Systems Review of Systems ROS: Yes All systems reviewed with the patient and are negative except as otherwise documented Constitutional Constitutional: Reports system reviewed and no additional complaints, except as documented and Reports headache(s) Eyes Eyes: Reports system reviewed and no additional complaints, except as documented ENT Ears, Nose, Mouth, and Throat: Yes system reviewed and no additional complaints, except as documented and Yes headache(s) Cardiovascular Cardiovascular: Reports system reviewed and no additional complaints, except as documented and Reports dyspnea on exertion Respiratory Respiratory: Reports system reviewed and no additional complaints, except as documented and Reports dyspnea on exertion Gastrointestinal Gastrointestinal: Reports system reviewed and no additional complaints, except as documented, Reports abdominal pain, Reports bloating, Reports hematochezia and Reports change in stool character Genitourinary Genitourinary: Reports system reviewed and no additional complaints, except as documented Musculoskeletal Musculoskeletal: Reports system reviewed and no additional complaints, except as documented, Reports back pain, Reports myalgias and Reports arthralgias Integumentary/Breasts Skin/Breast: Reports system reviewed and no additional complaints, except as documented Neurologic Neurologic: Reports system reviewed and no additional complaints, except as documented, Reports confusion, Reports headache(s) and Reports memory loss Psychiatric Psychiatric: Reports confusion and Reports memory loss Endocrine Endocrine: Reports system reviewed and no additional complaints, except as documented Hematologic/Lymphatic Hematologic/Lymphatic: Reports system reviewed and no additional complaints, except as documented Allergic/Immunologic Allergic/Immunologic: Reports system reviewed and no additional complaints, except as documented Exam Vital Signs (past 8 hours): - 05/27/24 14:07 Temperature 98.0 F Pulse Rate 88 Respiratory Rate 12 Blood Pressure 182/117 H Pulse Oximetry 98 Oxygen Delivery Method Room Air Oxygen Delivery Method Room Air Narrative Exam Narrative: Gen: NAD, sitting comfortably in bed, appears well HEENT: Sclera are anicteric, head is normocephalic and atraumatic, trachea is midline. CV: RRR, no JVD Resp: clear to auscultation bilaterally, equal chest wall movement bilaterally Abd: soft, nontender, normoactive bowel sounds Ext: no edema, full range of motion Neuro: Cranial nerves II-XII grossly intact, no focal deficits Skin: No erythema or ecchymosis Assessment & Plan Assessment and plan (1) Personal history of colonic polyps: Status: Acute (2) Prolapsed internal hemorrhoids, grade 3: Status: Acute Assessment & Plan narrative: Patient presents for follow-up screening colonoscopy for history of polyps. Past colonoscopy did not show any evidence of ulcerative colitis. The patient is in doubt of the diagnosis that was made in [place] 16 years ago, she has not required maintenance treatment. Risks, benefits, alternatives to colonoscopy explained, including but not limited to bowel perforation or other serious complication requiring surgery at less than 1 in 5000 colonoscopies, abdominal pain, cramping or bleeding and less than 1% of colonoscopies, and the chances that we find a diagnosis that would require further intervention of about 2%. Patient agrees to proceed. Patient is also interested in having the prolapsed internal hemorrhoid banded at the time of colonoscopy. Explained the risk of recurrence and continued issues with hemorrhoids especially given her chronic diarrhea. Time-Based Coding :: [TOTAL MINUTES] spent with patient and on the chart (including review of chart, obtaining history, exam, reviewing outside data, placing orders, documenting exam and treatment plan, and counseling patient) on [DATE].
[2024-05-27 14:25] VITALS: BP 172/99
--- NOTE | 2024-05-27 14:51 | PM.OP.COLON ---
Operative Date/Time/Diagnoses Date of procedure: 05/27/24 Time of procedure: 14:51 Pre-op diagnosis: 1. Personal history of colon polyp 2. Prolapsed internal hemorrhoid Post-op diagnosis: same Procedure & Clinicians Study performed: 1. Colonoscopy with cold snare polypectomy of rectal polyp 2. Rubber-band ligation of prolapsed internal hemorrhoid in the left posterior quadrant Same procedure as scheduled: Yes Indications: Blood per rectum, palpable hemorrhoid requiring manual reduction Surgeon: Carlo Sheridan Procedure Notes SCOAP/Timeout: Performed Procedure in detail: Time-out was performed. Mac was induced. Patient was placed in left lateral decubitus position. The perineum was inspected without any gross abnormality. Lubricated pediatric colonoscope was inserted and advanced to the cecum. The terminal ileum was intubated. The colonoscope was withdrawn slowly inspecting the circumference of the colon. In 8 mm polyp located in the rectum approximately 10 cm from the anal verge was removed with cold snare. It was retrieved completely. Very small polyps may have been missed, prep quality was adequate. Retroflexed view of the rectum showed a single large prolapsed nonbleeding internal hemorrhoid located in the left posterior quadrant. The scope was withdrawn. Lubricated anoscope was inserted and the rectum was again inspected. A [facility] or Hardy suction hemorrhoid dress finisher was applied to the dominant internal hemorrhoid located in the left posterior quadrant. Two bands were applied. The anoscope was withdrawn. The patient was taken to PACU in good condition. Scope withdrawal time: 11 Sedation minutes: 17 Findings: internal hemorrhoids and polyp(s) Specimen(s): other (rectal polyp) Complications: none Impression: small rectal polyp, internal hemorrhoids Post-procedure Recommendations: Colonoscopy in 5 years Follow up: as needed
[2024-05-27 14:54] VITALS: BP 137/94; PULSE 78; RESP 14; TEMP 36.2; O2SAT 94
[2024-05-27 14:59] VITALS: BP 135/94; PULSE 79; RESP 19; O2SAT 94
[2024-05-27 15:02] VITALS: BP 149/86; PULSE 80; RESP 14; O2SAT 96
[2024-05-27 15:04] VITALS: BP 133/95; PULSE 71; RESP 14; TEMP 36.2; O2SAT 98
== END 2024-05-27 15:12 | disposition home or self-care (01) ==
PROVIDERS: Surgery; PCP Family Medicine; Referring Provider Surgery; Visit Provider Surgery
PROC: 0DJD8ZZ Inspection of Lower Intestinal Tract, Via Natural or Artificial Opening Endoscopic (ICD-10-PCS; CPT 45378; principal; 2024-05-27 15:30)
DX: Z12.11 Encounter for screening for malignant neoplasm of colon (principal); Z86.0100 Personal history of colon polyps, unspecified; K64.8 Other hemorrhoids; K51.40 Inflammatory polyps of colon without complications
CPT/HCPCS: 46221; 45385; J2704